=== PATIENT | male | born 1950 | race Two or more races ===

== ENCOUNTER 2023-10-23 18:36 | Inpatient (IN) | payer MEDICARE, OTHER, SELFPAY ==
[2023-10-23 15:04] VITALS: BP 102/49
[2023-10-23 15:27] LABS: % Basophils 0.5 % (0-2); % Eosinophils 0.9 % (0-6); % Immature Granulocytes 1.7 % (0-0.5); % Lymphocytes 12.9 % (20.5-51.1); % Monocytes 8.8 % (1.7-9.3); % Neutrophils 75.2 % (42.2-75.2); Absolute Basophils 0.1 10^3/uL (0-0.2); Absolute Eosinophils 0.1 10^3/uL (0-0.7); Absolute Immature Granulocytes 0.2 10^3/uL (0-0.05); Absolute Lymphocytes 1.5 10^3/uL (1.2-3.4); Absolute Neutrophils 8.7 10^3/uL (1.4-6.5); Hematocrit 21.1 % (39.0-52.0); Mean Corp Hgb Conc. 32.7 g/dL (33.0-37.0); Mean Corpuscular Hgb 31.2 pg (27.0-31.0); Mean Corpuscular Volume 95.5 fL (80.0-94.0); Mean Platelet Volume 11.2 fL (7.4-10.4); Nucleated Red Blood Cells % 1.4 % (-); Platelet Count 198 10^3/uL (130-400); Red Blood Cell Count 2.21 10^6/uL (4.70-6.10); Red Cell Dist. Width 16.5 % (11.5-14.5); White Blood Cell Count 11.6 10^3/uL (4.8-10.8)
[2023-10-23 15:33] LABS: Hemoglobin 6.9 g/dL (13.0-18.0)
[2023-10-23 15:43] LABS: ALT (SGPT) 26 U/L (0-50); AST (SGOT) 27 U/L (17-59); Albumin 3.7 g/dl (3.5-5.0); Alkaline Phosphatase 86 U/L (38-126); Blood Urea Nitrogen 27 mg/dl (9-20); Calcium 9.2 mg/dl (8.4-10.2); Carbon Dioxide 21 mmol/L (22-30); Chloride 102 mmol/L (98-107); Glucose 127 mg/dl (70-99); Potassium 3.8 mmol/L (3.5-5.1); Sodium 130 mmol/L (135-145); Total Bilirubin 0.4 mg/dl (0.2-1.3); Total Protein 5.9 g/dl (6.3-8.2); eGFR > 60.00
[2023-10-23 15:50] LABS: NT-proBNP 414 pg/ml; Troponin I 0.015 ng/ml
--- NOTE | 2023-10-23 17:48 | HPS.HSE ---
Family Physician
-
Family Physician:
Chief Complaint
-
Fatigue for a few days duration
History of Present Illness
73 years old male presented with fatigue and weakness in the last few days. He reported dark-colored stools over the last few days. He denied chest pain or shortness of breath. He was taking ibuprofen for arthritic/back pain. No fever. No
history of gastric ulcer. No abdominal pain or nausea. His children noticed that he was looking pale also.
Medical History
Past Medical History
Past Medical History: Reports Other (Hypertension, arthritis)
Past Surgical History: Reports Other (No recent major surgery)
Social History
Tobacco: Former Smoker
Alcohol: Former
Drug: None
Personal: Single
Living: Alone
Employment: Retired
Family History
Family History: Adopted and Other
Allergies / Home Medications
Allergies reflects when Allergies were last updated in [employer].
Home Medications with original date entered in [employer]
Allergy/Medication List:
Allergies
Allergy/AdvReac Type Severity Reaction Status Date / Time
Penicillins Allergy Unknown Unknown Verified 10/23/23 15:04
Sulfa (Sulfonamide Allergy Unknown Unknown Verified 10/23/23 15:04
Antibiotics)
Home Medications
amlodipine 10 mg tablet 10 mg PO DAILY 10/23/23
hydrochlorothiazide 25 mg tablet 25 mg PO DAILY 10/23/23
ibuprofen 200 mg capsule 400 mg PO DAILY 10/23/23
loratadine 10 mg tablet (Claritin) 10 mg PO DAILY 10/23/23
multivitamin 1 tab PO DAILY 10/23/23
ramipril 10 mg capsule 10 mg PO DAILY 10/23/23
ramipril 5 mg capsule 5 mg PO DAILY 10/23/23
rosuvastatin 5 mg tablet 5 mg PO DAILY 10/23/23
Review of Systems
-
History Source: Patient
A 12 point ROS was completed and negative except as noted: Yes
Constitutional: Reports Fatigue
EENT: Denies Sore Throat
Respiratory: Denies Cough
Cardiac: Denies Chest Pain
Abdomen/GI: Reports Black Stools; Denies Abdominal Pain, Nausea or Vomiting
: Denies Dysuria or Bleeding
Musculoskeletal: Reports Joint Pain
Skin: Denies Itching or Rash
Neurological: Denies Headache or Numbness
Endocrine: Denies Temp Intolerance
Hematologic/Lymphatic: Denies Bruising
Psych: Denies Panic Disorder
Physical Exam
Vital Signs
Vital Signs
Temp Pulse Resp BP Pulse Ox
97.8 F 92 18 102/49 97
10/23/23 15:04 10/23/23 15:04 10/23/23 15:04 10/23/23 15:04 10/23/23 15:04
Physical Exam
General: Well Developed, Well Nourished, No Apparent Distress and Comfortable
HEENT: Moist mucous membranes and Atraumatic
Respiratory: Clear
Cardiac: S1/S2 and Tachycardia
GI: Soft, Non Tender and Non Distended
Rectal: Hem Positive
Genito-urinary: Clear Urine and No costovertebral tender
Musculoskeletal: No Clubbing, No Cyanosis and No Edema
Skin: Warm and Dry
Neuro: AO x 3 and Nonfocal/grossly intact
Psych: Calm and Intact Judgment/Insight
Laboratory Results
-
10/23/23 15:14
10/23/23 15:14
Laboratory Results
Total Bilirubin 0.4 mg/dl (0.2-1.3) 10/23/23 15:14
AST 27 U/L (17-59) 10/23/23 15:14
ALT 26 U/L (0-50) 10/23/23 15:14
Alkaline Phosphatase 86 U/L (38-126) 10/23/23 15:14
Troponin I 0.015 ng/ml 10/23/23 15:14
Impression/Plan
-
IMPRESSION:
73 years old male presented with anemia
#Acute blood loss anemia likely upper GI bleeding secondary to nonsteroidal anti-inflammatory, medications induced gastritis/esophagitis/ulceration
Admit the patient to the hospital. Admission hemoglobin 6.9.
Patient has fatigue, weakness with tachycardia on admission.
Will give blood transfusion. Consent signed.
Will start the patient on Protonix drip. Hold nonsteroidal anti-inflammatory drugs
No history of previous gastrointestinal problems. He uses Cologuard and last test was negative a month ago. Never had colonoscopy.
He is adopted with unknown family history. His children daughter have inflammatory bowel disease history.
Appreciate gastroenterology input. N.p.o. past midnight for possible EGD
# Primary hypertension. Will continue with amlodipine. Will hold ramipril due to low normal blood pressure on admission.
#Osteoarthritis. Will use Tylenol for pain.
# Leukocytosis, no fever. Likely reactive.
# Hyponatremia, mild, will continue to monitor.
# DVT prophylaxis with Thromboguards
Total time spent to see the patient, examine the patient on the floor, review data and lab results, discuss treatment plan with patient, ER doctor, nursing staff around 75 minutes.
--- NOTE | 2023-10-23 17:56 | ED.GENMED ---
History of Present Illness
General
Chief Complaint: Breathing Problem
Source: patient
Exam Limitations: none
Time Seen by Provider: 10/23/23 17:08
Travel History
Have you had any contact with someone who has COVID-19?: No
Do you have any symptoms of coronavirus? Fever > 100 degrees, chills, cough, shortness of breath, sore throat, loss of taste or smell, muscle aches, or headache?: No
History of Present Illness
History of Present Illness:
73-year-old male presents complaining of fatigue and dyspnea on exertion worsening over the past week. He also noted dark-colored stools over the past 2 to 3 days. He notes that the black color. He denies chest pain or shortness of breath. He is
not anticoagulated. He admits to taking about 400 mg of ibuprofen daily recently for back pain. No chest pain. No fever. No other complaints at this time
Phy Exam
Physical Exam
Physical Exam:
General: Well-appearing male no acute respiratory distress
HEENT: Normocephalic atraumatic looks pale
Heart: Regular rate and rhythm no murmurs
Lungs: Clear no wheeze or rales
Abdomen is soft nontender
Rectal exam: Black-colored stool which is heme positive
Extremities: Mild edema no cyanosis
Scores
Heart Failure Risk
Heart Failure Risk Score: Not Applicable
Course
Orders/Labs/Results
Orders:
Orders
10/23/23 15:06
Electrocardiogram (*1) Urgent
Reason for Study: Shortness of Breath
EKG- Treatment ONCE
10/23/23 15:14
Complete Blood Count/With Diff Urgent
Comprehensive Metabolic Panel Urgent
NT-proBNP Urgent
Troponin I Urgent
10/23/23 17:25
Blood Bank Products [* Blood Bank Products] Urgent
Blood Bank Products: *Packed RBC Leuko(PRBC's)
Quantity: 1
Transfuse Today: Yes
Reason: Anemia
Type+Screen Urgent
10/23/23 17:26
Pantoprazole [Protonix IV] 80 mg IV NOW STA
10/23/23 17:30
Pantoprazole 80 mg/100 ml Nss [Protonix] 80 mg in 100 ml IV Q10H
10/23/23 17:48
Admit/Transfer Patient As Directed
Co-Sign Provider:
Level of Care: Inpatient admission
Assign to:: Telemetry
Physician / Group: Hospitalist
Diagnosis: GI Bleeding
Reason for Telemetry: Medication for Arrhythmia
Date to Stop Telemetry: 10/25/23
Time to Stop Telemetry: 11:00
Reason for Hospitalization: .
Expected length of stay greater than two midnights?: Yes
ELOS- Estimated Length of Stay in days: 3
I certify the patient meets the requirements for IP care: Yes
10/23/23 17:49
Code Status As Directed
Resuscitation Status: Full Code
10/23/23 17:50
HydrALAZINE [Apresoline] 25 mg PO NOW STA
10/25/23 11:00
DC Protocol for Telemetry ONCE
Abnormal Lab Results
10/23/23
15:14
WBC 11.6 H 10^3/uL
(4.8-10.8)
RBC 2.21 L 10^6/uL
(4.70-6.10)
Hgb 6.9 L* g/dL
(13.0-18.0)
Hct 21.1 L %
(39.0-52.0)
MCV 95.5 H fL
(80.0-94.0)
MCH 31.2 H pg
(27.0-31.0)
MCHC 32.7 L g/dL
(33.0-37.0)
RDW 16.5 H %
(11.5-14.5)
MPV 11.2 H fL
(7.4-10.4)
Abs Immat Gran (auto) 0.2 H 10^3/uL
(0-0.05)
Absolute Neuts (auto) 8.7 H 10^3/uL
(1.4-6.5)
Absolute Monos (auto) 1.0 H 10^3/uL
(0.1-0.6)
Immature Gran % 1.7 H %
(0-0.5)
Lymphocytes % 12.9 L %
(20.5-51.1)
Sodium 130 L mmol/L
(135-145)
Carbon Dioxide 21 L mmol/L
(22-30)
BUN 27 H mg/dl
(9-20)
Glucose 127 H mg/dl
(70-99)
Total Protein 5.9 L g/dl
(6.3-8.2)
10/23/23 15:14
10/23/23 15:14
Vital Signs
Initial and Last Documented VS:
Initial Vital Signs
Temp Pulse Resp BP Pulse Ox
97.8 F 92 18 102/49 97
10/23/23 15:04 10/23/23 15:04 10/23/23 15:04 10/23/23 15:04 10/23/23 15:04
Last Documented Vital Signs
Temp Pulse Resp BP Pulse Ox
97.8 F 92 18 102/49 97
10/23/23 15:04 10/23/23 15:04 10/23/23 15:04 10/23/23 15:04 10/23/23 15:04
MDM/Problems Addressed
Differential Diagnosis Includes:
Fatigue with new weakness and shortness of breath with exertion. Question electrolyte abnormality versus anemia.
Exam more consistent with black stool that is heme positive suspect possible GI bleeding.
Will start Protonix. Hemoglobin 6.9. He is symptomatic from his anemia. Written consent obtained for blood transfusion packed red blood cells ordered x 1 unit. Gastroenterology and medicine made aware. Will admit to hospital
*Critical Care Note
Total Time (30-74mins, 75-104mins- exclusive of procedures): Not Applicable
ED Attending Note
-
Portions of this chart may have been created with voice recognition software.� Occasional wrong word or��sound alike� substitutions may have occurred due to the inherent limitations of voice recognition software.
Discharge Plan
Departure
Patient Disposition: Admit
Date of Disposition: 10/23/23
Time of Disposition: 17:58
Admit to: Telemetry
Presentation/result/management discussed w/ accepting MD/DO: Hospitalist
Discharge Problem:
Symptomatic anemia, Acute GI bleeding
Prescriptions:
No Action
multivitamin Tablet
1 tab PO DAILY
ibuprofen 200 mg Capsule
400 mg PO DAILY
amlodipine 10 mg tablet
10 mg PO DAILY
hydrochlorothiazide 25 mg tablet
25 mg PO DAILY
ramipril 5 mg capsule
5 mg PO DAILY
Patient Comments:
10/23/2023: taken w/ 10mg = 15mg
loratadine [Claritin] 10 mg Tablet
10 mg PO DAILY
ramipril 10 mg capsule
10 mg PO DAILY
Patient Comments:
10/23/2023: Taken w/ 5mg = 15mg
rosuvastatin 5 mg tablet
5 mg PO DAILY
Discharge Date and Time
Print Language: GRENADIAN
[2023-10-23 18:06] VITALS: BP 107/63
[2023-10-23] MEDS: PROTONIX IV 80 MG IV (18:07)
[2023-10-23] MEDS: PROTONIX 100 IV (18:11)
[2023-10-23 20:39] VITALS: BP 110/61; BMI 34.0
[2023-10-23 22:44] VITALS: BP 122/51
[2023-10-23 23:00] VITALS: BP 113/55
[2023-10-24] VITALS (10 sets, daily range): BP systolic 110–141; BP diastolic 55–72
--- NOTE | 2023-10-24 01:07 | PTCARENOTE ---
1 unit of PRBC infused without incident. VS stable throughout infusion. Pt's call blas within reach.
[2023-10-24] MEDS: PROTONIX 100 IV (03:37)
[2023-10-24 06:34] LABS: Hematocrit 21.2 % (39.0-52.0); Mean Corpuscular Hgb 31.3 pg (27.0-31.0); Mean Corpuscular Volume 94.6 fL (80.0-94.0); Mean Platelet Volume 11.2 fL (7.4-10.4); Platelet Count 144 10^3/uL (130-400); Red Blood Cell Count 2.24 10^6/uL (4.70-6.10); Red Cell Dist. Width 16.7 % (11.5-14.5); White Blood Cell Count 8.7 10^3/uL (4.8-10.8)
--- NOTE | 2023-10-24 06:52 | CON.GI ---
Addendum entered and electronically signed by Vandana Archer MD 10/24/23 13:05:
I saw and examined the patient.
The FIFTH GRADE TEACHER or PA's note was reviewed and I agree with the note.
Comment: 73 yo M pmh HTN here with melena and anemia in setting of NSAID use suspect PUD. No AC.
s/p 2UPRBC.
Plan EGD today risks inc not limited to bleeding, infection, perforation, anesthesia risk d/w pt agreeable.
Continue PPI.
NPO for not pending EGD.
Further recommendations pending EGD.
Addendum entered and electronically signed by MALOU Hutchins 10/24/23 09:07:
will add iron studies to ER lab, rectal black heme + in ER.
Original Note:
Consultation
-
Date/Time Consultation Requested: 10/23/232010
Date/Time Consultation Performed: 10/24/23 0800
Requesting Provider: Winnie Watkins MD
Performing Provider: MALOU Street, Josiane Archer MD
Reason for Consultation: anemia
Medical History
Chief Complaint / HPI
Chief Complaint: dark stools
History of Present Illness:
Pt is a 73yo with hx HTN, arthritis with onset of dark black stool and hbg on admission to 6.9 with BUN of 27. Pt admits to chronic Ibuprofen use for back pain with several increased dose for joint pains after shingles vaccine. Pt admits to
slow onset of symptoms but over last week worse with dizziness and black stools. No hx EGD or colonoscopy in past. He has has cologuard last several weeks ago noted negative.
Pt admits to 1 black stool every other day with dizziness but denies dysphagia, GERD, nausea, vomiting, abdominal pain, diarrhea, constipation or red blood in stools.
Past Medical History
Past Medical History: HTN and Other (arthritis, seasonal allergies)
Social History
Tobacco: Former Smoker (quit 2032)
Alcohol: Former (quit )
Drug: None
Living: Alone
Employment: Retired
Family History
Family History: Adopted (children with no hx GI problems)
Allergies / Home Medications
Allergy/AdvReac Type Severity Reaction Status Date / Time
Penicillins Allergy Unknown Unknown Verified 10/23/23 15:04
Sulfa (Sulfonamide Allergy Unknown Unknown Verified 10/23/23 15:04
Antibiotics)
�Medication �Instructions �Recorded
amlodipine 10 mg tablet 10 mg PO DAILY 10/23/23
hydrochlorothiazide 25 mg tablet 25 mg PO DAILY 10/23/23
ibuprofen 200 mg capsule 400 mg PO DAILY 10/23/23
loratadine 10 mg tablet (Claritin) 10 mg PO DAILY 10/23/23
multivitamin 1 tab PO DAILY 10/23/23
ramipril 10 mg capsule 10 mg PO DAILY 10/23/23
ramipril 5 mg capsule 5 mg PO DAILY 10/23/23
rosuvastatin 5 mg tablet 5 mg PO DAILY 10/23/23
Review of Systems
-
History Source: Patient
Constitutional: Reports No Symptoms
EENT: Reports No Symptoms
Respiratory: Reports No Symptoms
Abdomen/GI: Reports Black Stools
: Reports No Symptoms
Musculoskeletal: Reports Joint Pain
Skin: Reports No Symptoms
Neurological: Reports Dizzy and Weakness
Endocrine: Reports No Symptoms
Hematologic/Lymphatic: Reports Bleeding
Vital Signs
Temp Pulse Resp BP Pulse Ox
99.4 F 83 20 125/58 96
10/24/23 03:35 10/24/23 03:35 10/24/23 03:35 10/24/23 03:35 10/24/23 03:35
Physical Exam
Exam
General: Well Developed, Well Nourished and No Apparent Distress
HEENT: Normocephalic and Anicteric
Respiratory: Clear
Cardiac: Regular Rhythm
GI: Soft, Non Tender and Non Distended
Musculoskeletal: No Clubbing and No Cyanosis
Skin: Warm and Dry
Neuro: Awake, Alert and AO x 3
Psych: Calm
Results
WBC 8.7 10^3/uL (4.8-10.8) 10/24/23 06:19
Hgb 7.0 g/dL (13.0-18.0) L 10/24/23 06:19
Hct 21.2 % (39.0-52.0) L 10/24/23 06:19
MCV 94.6 fL (80.0-94.0) H 10/24/23 06:19
Plt Count 144 10^3/uL (130-400) D 10/24/23 06:19
Absolute Neuts (auto) 8.7 10^3/uL (1.4-6.5) H 10/23/23 15:14
Sodium 130 mmol/L (135-145) L 10/23/23 15:14
Potassium 3.8 mmol/L (3.5-5.1) 10/23/23 15:14
Chloride 102 mmol/L (98-107) 10/23/23 15:14
Carbon Dioxide 21 mmol/L (22-30) L 10/23/23 15:14
BUN 27 mg/dl (9-20) H 10/23/23 15:14
Creatinine 1.1 mg/dL (0.7-1.3) 10/23/23 15:14
Calcium 9.2 mg/dl (8.4-10.2) 10/23/23 15:14
Total Bilirubin 0.4 mg/dl (0.2-1.3) 10/23/23 15:14
AST 27 U/L (17-59) 10/23/23 15:14
ALT 26 U/L (0-50) 10/23/23 15:14
Alkaline Phosphatase 86 U/L (38-126) 10/23/23 15:14
Diagnostic Image Results:
Prior GI Procedures:
EGD: none
Colonoscopy: none
cologuard neg 2-3 weeks ago
Assessment / Plan
-
Pt is a 73yo with hx HTN, arthritis with onset of dark black stools with weakness and dizziness over last week,. Noted hbg 6.9 on admission no prior baseline. Pt admits to recent Ibuprofen use for back pain and increased use with recent
shingles vaccine
-melena
-symptomatic anemia
-HTN
-hx arthritis with chronic NSAID use
prior ETOH and tobacco use
PLAN:
etiology of anemia with melena related to UGI- PUD with chronic NSAID use, ectasia, mass vs other
plan for EGD today
NSAID avoidance
s/p transfusion overnight hbg only up to 7 for additional unit today
continue protonix gtt
NPO
if neg consider colonoscopy vs OP colonoscopy after discharge
-
-
Thank you for consultation and allowing me to participate in the patient's care. Please call the plant operations worker GI physician during the after hours with any questions or concerns.
[2023-10-24 06:54] LABS: Blood Urea Nitrogen 23 mg/dl (9-20); Calcium 8.3 mg/dl (8.4-10.2); Carbon Dioxide 25 mmol/L (22-30); Chloride 104 mmol/L (98-107); Estimated Creatinine Clearance 83 ml/min; Glucose 114 mg/dl (70-99); Potassium 4.2 mmol/L (3.5-5.1); Sodium 131 mmol/L (135-145); eGFR > 60.00
[2023-10-24] MEDS: NORVASC 10 MG PO (07:30)
[2023-10-24 07:45] LABS: INR 1.17; PT 14.7 Sec (11.4-14.6)
--- NOTE | 2023-10-24 08:52 | W.PN.HOSP.TC ---
Today's Communication/Plan
-
.
Assessment / Plan
Assessment / Plan
Physical Exam
General: Well Developed, Well Nourished, No Apparent Distress and Comfortable
HEENT: Moist mucous membranes and Atraumatic
Respiratory: Clear
Cardiac: S1/S2 and Tachycardia
GI: Soft, Non Tender and Non Distended
Rectal: Hem Positive
Genito-urinary: Clear Urine and No costovertebral tender
Musculoskeletal: No Clubbing, No Cyanosis and No Edema
Skin: Warm and Dry
Neuro: AO x 3 and Nonfocal/grossly intact
Psych: Calm and Intact Judgment/Insight
73 years old male presented with anemia
#Acute blood loss anemia likely upper GI bleeding secondary to nonsteroidal anti-inflammatory, medications induced gastritis/esophagitis/ulceration
HGB at 7 post one unit , will give another unit of RBCs.
c/w Protonix drip. Hold nonsteroidal anti-inflammatory drugs
No history of previous gastrointestinal problems. He uses Cologuard and last test was negative a month ago. Never had colonoscopy.
He is adopted with unknown family history. His children daughter have inflammatory bowel disease history.
Appreciate gastroenterology input. N.p.o. past midnight for possible EGD
# Primary hypertension. Will continue with amlodipine. Hold ramipril due to low normal blood pressure on admission.
#Osteoarthritis. use Tylenol for pain.
# Leukocytosis, no fever. Resolved. Likely reactive.
# Hyponatremia, mild, will continue to monitor. Na at 131
# DVT prophylaxis with Thromboguards
Total time spent to see the patient, examine the patient on the floor, review data and lab results, discuss treatment plan with patient, nursing staff around 55 minutes.
Anticipated Discharge: Within 24 hours
Subjective/Interval History
-
Date of Service: October 24, 2023
No rectal bleeding, no BM over night
No abd pain
Objective Data
-
Labs:
Laboratory Results
10/24/23 10/24/23
06:19 07:17
WBC 8.7
Hgb 7.0 L
Hct 21.2 L
Plt Count 144 D
PT 14.7 H
INR 1.17
Sodium 131 L
Potassium 4.2
Chloride 104
Carbon Dioxide 25
BUN 23 H
Creatinine 1.0
Glucose 114 H
Calcium 8.3 L
Vital Signs:
Vital Signs
Temp Pulse Resp BP Pulse Ox
98.6 F 85 18 135/72 97
10/24/23 08:44 10/24/23 08:44 10/24/23 08:44 10/24/23 08:44 10/24/23 08:44
I&O
10/23/23 10/24/23 10/25/23
06:59 06:59 06:59
Intake Total 490 / 490 0 / 0
Output Total 850 / 850
Balance -360 / -360 0 / 0
[2023-10-24 11:30] LABS: Iron 158 ug/dl (49-181)
[2023-10-24 11:39] LABS: Percent Saturation 39 % (20-50); Total Iron Binding Capacity 402 ug/dl (261-462)
--- NOTE | 2023-10-24 11:55 | PTCARENOTE ---
Patient received 1 unit of PRBC. No s/s of transfusion reaction noted. VSS. Pox: 99% RA. Call blas within reach. Plan of care ongoing.
--- NOTE | 2023-10-24 13:05 | W.PN.UPDATE ---
Update Note
Progress Note Update
billing purposes only
[2023-10-24 13:50] LABS: Ferritin 46.3 ng/ml (17.9-464.0)
[2023-10-24] MEDS: PROTONIX IV (14:41)
--- NOTE | 2023-10-24 15:57 | CM ---
CM met with pt andn dtr bedside
Pt resides alone in a 3rd floor apartment with no elevator access
Pt has approx [address] apartment
Pt is independent with his ADls
Denies use of DMEs
PCP- Ashley Wilkins
Rx- [facility]
PT order requested to assess for endurance and steps to enter home
CM will continue to follow pt for dc planning
Discharge Disposition- home, follow for VN needs
[2023-10-24] MEDS: GAVILAX 238 GM PO (19:22)
[2023-10-24] MEDS: PROTONIX IV 40 MG IV (20:40)
[2023-10-24] MEDS: NSS (PRESERVATIVE FREE) 10 ML IV (20:40)
[2023-10-24] MEDS: FLUSH (NSS) 2 FLUSH IV (20:40)
[2023-10-25] VITALS (7 sets, daily range): BP systolic 108–136; BP diastolic 51–84
--- NOTE | 2023-10-25 00:50 | PTCARENOTE ---
Pt completed bowel prep around 2200. Pt informed this RN he had one formed BM. No other stools noted. GANG PUNCH OPERATOR made aware, new order provided, see MAR. Will reevaluate stool in anticipation of colonoscopy today.
[2023-10-25] MEDS: GAVILAX 238 GM PO (02:59)
[2023-10-25 06:36] LABS: Mean Corp Hgb Conc. 33.8 g/dL (33.0-37.0); Mean Corpuscular Hgb 31.3 pg (27.0-31.0); Mean Corpuscular Volume 92.5 fL (80.0-94.0); Mean Platelet Volume 10.8 fL (7.4-10.4); Platelet Count 159 10^3/uL (130-400); Red Blood Cell Count 2.81 10^6/uL (4.70-6.10); Red Cell Dist. Width 17.1 % (11.5-14.5); White Blood Cell Count 7.4 10^3/uL (4.8-10.8)
[2023-10-25 06:38] LABS: Hemoglobin 8.8 g/dL (13.0-18.0)
[2023-10-25 07:00] LABS: Blood Urea Nitrogen 18 mg/dl (9-20); Calcium 8.8 mg/dl (8.4-10.2); Carbon Dioxide 24 mmol/L (22-30); Chloride 104 mmol/L (98-107); Estimated Creatinine Clearance 83 ml/min; Glucose 131 mg/dl (70-99); Potassium 4.1 mmol/L (3.5-5.1); Sodium 132 mmol/L (135-145); eGFR > 60.00
--- NOTE | 2023-10-25 07:30 | PTCARENOTE ---
Pt HR sustaining 130's-140's. No complaints of shortness of breathe. Pt stated, 'It feels like my heart is thumping'. HR decreased to 80's-90's and increased to 130'-140's again. Hospitalist made aware, hospitalist assessed pt at bedside, new orders
provided, see MAR. Bonita RN made aware of information. This RN and daysiaft RN assessed pt at bedside. Will continue to monitor.
[2023-10-25] MEDS: NSS 500 IV (07:44)
--- NOTE | 2023-10-25 08:04 | W.PN.HOSP.TC ---
Today's Communication/Plan
-
.
Assessment / Plan
Assessment / Plan
Physical Exam
General: Well Developed, Well Nourished, No Apparent Distress and Comfortable
HEENT: Moist mucous membranes and Atraumatic
Respiratory: Clear
Cardiac: S1/S2 and Tachycardia
GI: Soft, Non Tender and Non Distended
Rectal: Hem Positive
Genito-urinary: Clear Urine and No costovertebral tender
Musculoskeletal: No Clubbing, No Cyanosis and No Edema
Skin: Warm and Dry
Neuro: AO x 3 and Nonfocal/grossly intact
Psych: Calm and Intact Judgment/Insight
73 years old male presented with anemia
Tachycardia this morning,
# Consistent with atrial fibrillation. Patient reports history of palpitations on and off at home. No known cardiac disease. Order EKG. Seems consistent with atrial fibrillation. Will give IV fluid for volume replacement, give one-time IV
Lopressor and start the patient on IV Cardizem drip.
Order echocardiogram
This is not a contraindication to do colonoscopy which will be helpful to detect GI bleeding source if we need to use anticoagulation
Appreciate cardiology input
#Acute blood loss anemia likely upper GI bleeding secondary to nonsteroidal anti-inflammatory, medications induced gastritis/esophagitis/ulceration
HGB at 8.8, status post 2 units of blood.
Upper endoscopy did not reveal source of bleeding
For colonoscopy today
Status post Protonix drip.
Appreciate gastroenterology input. N.p.o. past midnight for possible EGD
# Primary hypertension. Stop amlodipine while using Cardizem. Holding ramipril due to low normal blood pressure on admission.
#Osteoarthritis. use Tylenol for pain.
# Leukocytosis, no fever. Resolved. Likely reactive.
# Hyponatremia, mild, will continue to monitor. Na at 132
# DVT prophylaxis with Thromboguards
Total time spent to see the patient, examine the patient on the floor, review data and lab results, discuss treatment plan with patient, nursing staff around 55 minutes.
Anticipated Discharge: 24 - 48 hours
Subjective/Interval History
-
Date of Service: October 25, 2023
called to see the patient for rapid heart rate
PT reports palpitations
Objective Data
-
Labs:
Laboratory Results
10/25/23
06:26
WBC 7.4
Hgb 8.8 L D
Hct 26.0 L
Plt Count 159
Sodium 132 L
Potassium 4.1
Chloride 104
Carbon Dioxide 24
BUN 18
Creatinine 1.0
Glucose 131 H
Calcium 8.8
Vital Signs:
Vital Signs
Temp Pulse Resp BP Pulse Ox
98.6 F 78 18 126/70 98
10/25/23 03:47 10/25/23 03:47 10/25/23 03:47 10/25/23 03:47 10/25/23 03:47
I&O
10/24/23 10/25/23 10/26/23
06:59 06:59 06:59
Intake Total 490 / 490 7420 / 7420
Output Total 850 / 850
Balance -360 / -360 7420 / 7420
[2023-10-25] MEDS: NSS (PRESERVATIVE FREE) 10 ML IV ×2 (08:11→19:49)
[2023-10-25] MEDS: PROTONIX IV 40 MG IV ×2 (08:12→19:49)
[2023-10-25] MEDS: LOPRESSOR 5 MG IV (08:18)
[2023-10-25] MEDS: NORVASC PO (08:18)
[2023-10-25] MEDS: CARDIZEM 125 IV (08:42)
--- NOTE | 2023-10-25 10:12 | CON.CAR ---
Addendum entered and electronically signed by Reyes Thacker MD 10/25/23 12:15:
I saw and examined the patient.
The Business Continuity Planner's note was reviewed and I agree with the note.
Comment: Briefly, 73-year-old man presenting with fatigue found to have symptomatic anemia with concern for GI bleed
While undergoing prep for colonoscopy he developed atrial fibrillation with rapid ventricular response
Initiated on Cardizem drip, would uptitrate for goal heart rate less than 110 bpm
Given suspected GI bleed would opt for rate control strategy if possible for now, can hopefully transition to oral AV evelyn morena
Would initiate anticoagulation when safe from a GI standpoint
Original Note:
Consultation
Consultation Request
Date/Time Consultation Performed: 10/25/23
Requesting Provider: Dr. Watkins
Performing Provider: Rhina Powell PA-C for Dr. Thacker
Reason for Consultation: afib with RVR
Medical History
-
Chief Complaint: weakness
History of Present Illness:
Patient is a 73-year-old male with past medical history of hypertension, hyperlipidemia who presented to the hospital for evaluation of weakness. He reports he has been taking ibuprofen for achy joints over the last week or 2. He states he also
recently received a shingles vaccine and was achy from this, and increased his ibuprofen dose to 600 mg. He states over the last several days he has noted dark stools. He was admitted for GI bleeding and underwent endoscopy 10/24/2023. He underwent
prep for colonoscopy yesterday afternoon and overnight. He states he had to complete the prep twice. This morning around 7 AM he was noted to go into atrial fibrillation with rapid ventricular response. This is a new diagnosis for patient. He
does report over the last several months he had intermittent brief palpitations which appear to be random but did not seek further medical attention for this. He denies recent chest pain or shortness of breath. He was started on cardizem gtt.
Cardiology consulted for evaluation.
PMH:
HTN
HLD
History of alcohol abuse, quit 1986
Former smoker
Past Medical History
Past Medical History: Other (in HPI)
Social History
Tobacco: Former Smoker
Alcohol: Former
Employment: Retired
Family History
Family History: Adopted
Allergies / Home Medications
Allergy/AdvReac Type Severity Reaction Status Date / Time
Penicillins Allergy Unknown Unknown Verified 10/23/23 15:04
Sulfa (Sulfonamide Allergy Unknown Unknown Verified 10/23/23 15:04
Antibiotics)
�Medication �Instructions �Recorded �Confirmed �Type
amlodipine 10 mg tablet 10 mg PO DAILY 10/23/23 10/23/23 History
hydrochlorothiazide 25 mg tablet 25 mg PO DAILY 10/23/23 10/23/23 History
ibuprofen 200 mg capsule 400 mg PO DAILY 10/23/23 10/23/23 History
loratadine 10 mg tablet (Claritin) 10 mg PO DAILY 10/23/23 10/23/23 History
multivitamin 1 tab PO DAILY 10/23/23 10/23/23 History
ramipril 10 mg capsule 10 mg PO DAILY 10/23/23 10/23/23 History
ramipril 5 mg capsule 5 mg PO DAILY 10/23/23 10/23/23 History
rosuvastatin 5 mg tablet 5 mg PO DAILY 10/23/23 10/23/23 History
Review of Systems
-
History Source: Patient
All other systems: Negative unless noted
Physical Exam
Vital Signs
Temp Pulse Resp BP Pulse Ox
98.8 F 78 16 126/70 95
10/25/23 07:00 10/25/23 08:18 10/25/23 07:00 10/25/23 08:18 10/25/23 07:00
Lab Results
10/25/23 06:26
10/25/23 06:26
Troponin I 0.015 ng/ml 10/23/23 15:14
[id number] Pept 414 pg/ml 10/23/23 15:14
Physical Exam
General: No Apparent Distress and Comfortable
HEENT: Normocephalic, Anicteric and Moist Mucous Membranes
Respiratory: Clear and Non Labored Respirations
Cardiac: S1/S2, Irregular Rhythm and Murmur
GI: Soft, Non Tender, Non Distended and Normal Bowel Sounds
Musculoskeletal: No Clubbing, No Cyanosis and No Edema
Skin: Warm and Dry
Neuro: AO x 3
Impression / Plan
-
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 Thacker
Assessment:
Presentation with weakness
Acute anemia
Suspected LGIB
Dehydration
Atrial fibrillation with RVR, new diagnosis
Hyponatremia
Recent NSAID use
HTN
HLD
History of alcohol abuse, quit 1986
Former smoker
ECHO 10/25/23: pending
Plan:
-Patient presented with weakness and dark stools and was found to have acute anemia with hemoglobin of 6.9. Received 2 units PRBCs. underwent EGD 10/24/2023 without clear etiology of bleeding. Was for colonoscopy today, however went into atrial
fibrillation with rapid ventricular response this morning around 7 AM.
-Remains with elevated heart rates in A-fib. Increase IV Cardizem gtt dose to 10
-Check echo
-Check TSH
-Consider IV fluid hydration in setting of suspected dehydration from colonoscopy prep
-[id number] score of 2 for age, hypertension. Discussed anticoagulation with patient, however holding off for now on anticoagulation at present with GI workup underway for anemia/GI bleeding
-will continue rate control strategy for now. hopefully will spontaneously convert back to SR
-Discussed avoiding NSAID use in the future
-If heart rates improved, okay to proceed with colonoscopy later today
-d/w hospitalist, GI via TT
Data Reviewed
-
EKG: Tracing Personally Visualized and interpreted
Labs: Labs Reviewed by me
Old Records: Reviewed
--- NOTE | 2023-10-25 15:17 | CM ---
met with patient at bedside.ugi negative .for colonoscopy today.monitoring hgb.cm to follow patient for any dc needs.
plan:dc home with no needs vs vn.
[2023-10-26] VITALS (11 sets, daily range): BP systolic 107–144; BP diastolic 56–80
[2023-10-26] MEDS: CARDIZEM 125 IV (00:19)
[2023-10-26 06:41] LABS: Hematocrit 21.3 % (39.0-52.0); Hemoglobin 7.1 g/dL (13.0-18.0); Mean Corp Hgb Conc. 33.3 g/dL (33.0-37.0); Mean Corpuscular Hgb 31.6 pg (27.0-31.0); Mean Corpuscular Volume 94.7 fL (80.0-94.0); Mean Platelet Volume 11.2 fL (7.4-10.4); Platelet Count 112 10^3/uL (130-400); Red Blood Cell Count 2.25 10^6/uL (4.70-6.10); Red Cell Dist. Width 17.3 % (11.5-14.5); White Blood Cell Count 5.7 10^3/uL (4.8-10.8)
[2023-10-26 07:15] LABS: Blood Urea Nitrogen 15 mg/dl (9-20); Calcium 8.2 mg/dl (8.4-10.2); Carbon Dioxide 22 mmol/L (22-30); Chloride 109 mmol/L (98-107); Estimated Creatinine Clearance 83 ml/min; Glucose 108 mg/dl (70-99); Potassium 3.8 mmol/L (3.5-5.1); Sodium 133 mmol/L (135-145); eGFR > 60.00
[2023-10-26] MEDS: PROTONIX IV 40 MG IV ×2 (08:16→20:21)
[2023-10-26] MEDS: CARDIZEM CD 240 MG PO (08:16)
[2023-10-26] MEDS: NSS (PRESERVATIVE FREE) 10 ML IV ×2 (08:16→20:21)
[2023-10-26] MEDS: FLUSH (NSS) 2 FLUSH IV (08:16)
--- NOTE | 2023-10-26 09:32 | W.PN.GI.CBS2 ---
Addendum entered and electronically signed by Vandana Archer MD 10/26/23 18:13:
+ Umaña's on EGD - PPI indefinitely 5 year recall EGD
? celiac on path - will get celiac serologies would not explain melena
ENT eval appreciated
Addendum entered and electronically signed by Vandana Archer MD 10/26/23 13:39:
I saw and examined the patient.
The CRIMINAL ANALYST or PA's note was reviewed and I agree with the note.
Comment: 73 yo M pmh HTN here with melena and anemia in setting of NSAID use s/p EGD/colon no obvious source with such drop in Hb (small AVM in cecum s/p APC; duodenal erosion). Drop in Hb by 1 g today getting more PRBC.
Patient does elicit he has been having significant feeling in back of throat/postnasal drip and both spitting up blood and having blood from his nose- I think he would benefit from ENT eval and I discussed this recommendation with hospitalist.
We will put on for tentative push enteroscopy tomorrow.
Patient in new onset A fib and AC on hold with bleeding currently.
Addendum entered and electronically signed by MALOU Hutchins 10/26/23 10:39:
reviewed with cardiology currently in sinus Rhythm will need eventual anticoagulation when anemia work up completed
Addendum entered and electronically signed by MALOU Hutchins 10/26/23 09:54:
NPO for am if further drop and decide to proceed with enteroscopy
Original Note:
Today's Communication / Plan
-
s/p EGD and colonoscopy as noted
hbg 6.9 - 7-8.8-7.1
s/p 2 units transfused
will repeat hbg at 1400 today
if further drop or signs of bleeding consider push enteroscopy
pt for OP video capsule
pt also report some feeling of blood passing post nasal drip -- advance to provide sample and consider ENT eval
if anemia persist and no source consider heme eval as iron studies normal
review EGD bx with pt will need repeat EGD with metaplasia and colon 6 months with poor prep
pt also with villous blunting with duodenitis, celiac though no intraepithelial lymphocytes, less likely autoimmune enteropathy, infectious enteropathy or iatrogenic cause in differential will review with Dr. Archer
cont diet
Assessment / Plan
-
Pt is a 73yo with hx HTN, arthritis with onset of dark black stools with weakness and dizziness over last week,. Noted hbg 6.9 on admission no prior baseline. Pt admits to recent Ibuprofen use for back pain and increased use with recent
shingles vaccine
10/24/23- EGD - Normal esophagus. irreg Z line, - Congestive gastropathy. Biopsied. - Duodenal erosion without bleeding. - Flattened mucosa was found in the duodenum, rule out
celiac disease. Biopsied. Carefully examined no explanation for GIB today. bx mild chronic inactive gastritis, + intestinal metaplasia on esophageal bx, villous blunting,(duodenitis, celiac though no
intraepithelial lymphocytes, less likely autoimmune enteropathy, infectious enteropathy or iatrogenic causes)
10/25/23 colonoscopy - Preparation of the colon was inadequate., normal ileum, diverticulosis, single non bleeding angioectasia in cecum with APC treatment, IH
-melena
-symptomatic anemia - iron studies normal
-post nasal drip with bleeding last 7-10 days
-intestinal metaplasia
-villious blunting SB on EGD bx
-cecal AVM
-mild thrombocytopenia with drop during admission
-HTN
-hx arthritis with chronic NSAID use
prior ETOH and tobacco use
-hyponatremia
PLAN:
s/p EGD and colonoscopy as noted
hbg 6.9 - 7-8.8-7.1
s/p 2 units transfused
will repeat hbg at 1400 today
if further drop or signs of bleeding consider push enteroscopy
pt for OP video capsule
pt also report some feeling of blood passing post nasal drip -- advance to provide sample and consider ENT eval
if anemia persist and no source consider heme eval as iron studies normal
review EGD bx with pt will need repeat EGD with metaplasia and colon 6 months with poor prep
pt also with villous blunting with duodenitis, celiac though no intraepithelial lymphocytes, less likely autoimmune enteropathy, infectious enteropathy or iatrogenic cause in differential will review with Dr. Archer
cont diet
Subjective
Subjective
Date of Service: October 26, 2023
no stools overnight tolerating diet -- reports he has been having blood dripping post nasal. He states occasional blood with blowing nose over last 7-10 days
Objective
Data Reviewed
Laboratory Data:
Laboratory Results
10/26/23 06:24
Laboratory Results
PT 14.7 Sec (11.4-14.6) H 10/24/23 07:17
INR 1.17 10/24/23 07:17
Total Bilirubin 0.4 mg/dl (0.2-1.3) 10/23/23 15:14
AST 27 U/L (17-59) 10/23/23 15:14
ALT 26 U/L (0-50) 10/23/23 15:14
Alkaline Phosphatase 86 U/L (38-126) 10/23/23 15:14
Vital Signs and I&O:
Vital Signs
Temp Pulse Resp BP Pulse Ox
98.1 F 67 18 131/69 98
10/26/23 07:00 10/26/23 08:16 10/26/23 07:00 10/26/23 08:16 10/26/23 07:00
I&O
10/25/23 10/26/23 10/27/23
06:59 06:59 06:59
Intake Total 7420 / 7420 1140 / 1140
Balance 7420 / 7420 1140 / 1140
Physical Exam
Physical Exam
HEENT: Anicteric, Moist mucous membranes and Other (no adenopathy)
Cardiology: Normal Sinus Rhythm
Pulmonary: Clear
GI: Soft, Non Distended and Non Tender
Extremities: No Edema
Neuro: Non Focal
--- NOTE | 2023-10-26 10:39 | W.PN.CARDCBS ---
Addendum entered and electronically signed by Reyes Thacker MD 10/26/23 13:14:
I saw and examined the patient.
The Calliope Player's note was reviewed and I agree with the note.
Comment: Briefly, 73-year-old man presenting with symptomatic anemia undergoing workup of possible GI bleed
During colonoscopy prep he developed atrial fibrillation with rapid ventricular response
He spontaneously converted to sinus rhythm yesterday and is currently maintaining sinus rhythm
Continue diltiazem and monitor on telemetry
Eventual anticoagulation pending the results of anemia workup
Original Note:
Today's Communication / Plan
-
back in SR. cardizem cd 240mg daily
anemia work up per GI/primary service
may need additional transfusion
not current OAC candidate with ongoing anemia
check TSH
Impression / Plan
-
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
Assessment:
Presentation with weakness
Acute anemia
Suspected GIB
Dehydration
Atrial fibrillation with RVR, new diagnosis
Hyponatremia
Recent NSAID use
HTN
HLD
History of alcohol abuse, quit 1986
Former smoker
ECHO 10/25/23: EF 55-60%. mild MR, aortic sclerosis, mild AR, trace TR, PAP 26mmHg, dilated aortic root
Plan:
-Patient presented with weakness and dark stools and was found to have acute anemia with hemoglobin of 6.9. Received 2 units PRBCs. underwent EGD 10/24/2023 without clear etiology of bleeding. Was for colonoscopy 10/24 however went into afib with RVR
around 7AM. was started on IV cardizem gtt and spontaneously converted to SR 10/24 afternoon. he has remained in SR since that time
-continue po cardizem cd 240mg daily
-echo with results as above, reviewed with patient on 10/25
-[id number] score is 2, however not an anticoagulation candidate at present as with ongoing anemia. His hemoglobin dropped overnight from 8.8 to 7.1. Continue workup for primary service/GI. may need additional transfusion
-Check TSH
-Discussed avoiding NSAID use in the future
-d/w GI
Progress Note - Game Farm Helper
Subjective
Date of Service: October 26, 2023
Denies chest pain, shortness of breath, palpitations overnight. Does report he feels fatigued and weak.
Objective
Labs:
10/26/23 06:24
Labs
Hgb 7.1 g/dL (13.0-18.0) L 10/26/23 06:24
Hct 21.3 % (39.0-52.0) L 10/26/23 06:24
Plt Count 112 10^3/uL (130-400) L D 10/26/23 06:24
PT 14.7 Sec (11.4-14.6) H 10/24/23 07:17
INR 1.17 10/24/23 07:17
Sodium 133 mmol/L (135-145) L 10/26/23 06:24
Potassium 3.8 mmol/L (3.5-5.1) 10/26/23 06:24
BUN 15 mg/dl (9-20) 10/26/23 06:24
Creatinine 1.0 mg/dL (0.7-1.3) 10/26/23 06:24
Glucose 108 mg/dl (70-99) H 10/26/23 06:24
Troponins
10/23/23
15:14
Troponin I 0.015
Vital Signs and I&O:
Vital Signs
Temp Pulse Resp BP Pulse Ox
98.1 F 67 18 131/69 98
10/26/23 07:00 10/26/23 08:16 10/26/23 07:00 10/26/23 08:16 10/26/23 07:00
Vital Signs
Temp Pulse Resp BP Pulse Ox
98.1 F 67 18 131/69 98
10/26/23 07:00 10/26/23 08:16 10/26/23 07:00 10/26/23 08:16 10/26/23 07:00
Intake & Output
10/24/23 10/25/23 10/26/23 10/27/23
07:59 07:59 07:59 07:59
Intake Total 490 / 490 7420 / 7420 1140 / 1140
Output Total 850 / 850
Balance -360 / -360 7420 / 7420 1140 / 1140
Physical Exam
Physical Exam
GEN: No distress, awake, alert, oriented x3. sitting in chair
HEENT: supple, anicteric, mmm
LUNGS: CTA B/L, no wheezes/rales
CV: Reg, S1/S2, 1/6 syst LSB
ABD: soft, BS+, NT/ND
EXT: No cyanosis, clubbing, edema
NEURO: Gross non-focal
SKIN: Warm, pink, dry. No rash
--- NOTE | 2023-10-26 12:02 | W.PN.HOSP.TC ---
Addendum entered and electronically signed by Amaury Watkins MD 10/26/23 14:06:
Addendum
Pt reports post nasal drip, sometimes blood-tinged mucus
Discussed with GI doctor. Requesting ENT evaluation
d/w ENT
Input appreciated.
End
Original Note:
Today's Communication/Plan
-
.
Assessment / Plan
Assessment / Plan
Physical Exam
General: Well Developed, Well Nourished, No Apparent Distress and Comfortable
HEENT: Moist mucous membranes and Atraumatic
Respiratory: Clear
Cardiac: S1/S2 and Tachycardia
GI: Soft, Non Tender and Non Distended
Rectal: Hem Positive
Genito-urinary: Clear Urine and No costovertebral tender
Musculoskeletal: No Clubbing, No Cyanosis and No Edema
Skin: Warm and Dry
Neuro: AO x 3 and Nonfocal/grossly intact
Psych: Calm and Intact Judgment/Insight
73 years old male presented with anemia
# Paroxysmal atrial fibrillation.
Now in SR
Stop Cardizem gtt and star on oral Cardizem.
[id number] around 2.2% but not a candidate for systemic anticoagulation due to anemia and GI bleeding
Echocardiogram showed LVEF 55 to 60%. Mild MR, mild AI, trace TR.
Appreciate cardiology input
#Acute blood loss anemia likely upper GI bleeding possibly exacerbated by use of nonsteroidal anti-inflammatory, medications induced gastritis/esophagitis/ulceration
HGB at 8.8, status post 2 units of blood. Hemoglobin 7.1, will give another 2 units today.
Upper endoscopy did not reveal source of bleeding showed congestive gastropathy. Flattened mucosa in the duodenum.
Colonoscopy showed diverticulosis with nonbleeding angiectasia in the cecum.
Status post Protonix drip.
Appreciate gastroenterology input.
# Primary hypertension. Stopped amlodipine while using Cardizem. Held ramipril due to low normal blood pressure.
No chest pain. No headache.
#Osteoarthritis. use Tylenol for pain.
# Leukocytosis, no fever. Resolved. Likely reactive.
# Hyponatremia, mild, will continue to monitor. Na at 133
# DVT prophylaxis with Thromboguards
Total time spent to see the patient, examine the patient on the floor, review data and lab results, discuss treatment plan with patient, nursing staff around 57 minutes.
Anticipated Discharge: 24 - 48 hours
Subjective/Interval History
-
Date of Service: October 26, 2023
He denies abd pain or rectal bleeding
HGB dropped to 7.1
Objective Data
-
Labs:
Laboratory Results
10/26/23 10/26/23
06:24 14:00
WBC 5.7
Hgb 7.1 L Pending
Hct 21.3 L
Plt Count 112 L D
Sodium 133 L
Potassium 3.8
Chloride 109 H
Carbon Dioxide 22
BUN 15
Creatinine 1.0
Glucose 108 H
Calcium 8.2 L
Vital Signs:
Vital Signs
Temp Pulse Resp BP Pulse Ox
98.4 F 67 18 120/60 97
10/26/23 11:00 10/26/23 11:00 10/26/23 11:00 10/26/23 11:00 10/26/23 11:00
I&O
10/25/23 10/26/23 10/27/23
06:59 06:59 06:59
Intake Total 7420 / 7420 1140 / 1140
Balance 7420 / 7420 1140 / 1140
[2023-10-26 12:26] LABS: TSH Reflex To Free T4 4.82 uIU/ml (0.47-4.68)
[2023-10-26 12:55] LABS: Free T4 1.01 ng/dl (0.78-2.19)
--- NOTE | 2023-10-26 13:39 | W.PN.UPDATE ---
Update Note
Progress Note Update
billing purposes
--- NOTE | 2023-10-26 14:58 | CON.MD ---
Consultation - Medical
-
Pt seen and full consult dictated.
ENT asked to evaluate for possible epistaxis as a source of bloody stools and anemia.
Endoscopy and laryngoscopy performed at bed side. Entire nasal cavity is fully examined bilaterally, as well as larynx.
There is no evidence of mass, polyp, or any source of bleeding. No dry blood noted either.
A/P: There does not appear to be an upper airway source of bleeding. In order for epistaxis to cause the drop in Hgb we would expect a large amount of bleeding that would make the source more obvious. However, please contact us for re-evaluation if
there is any more significant bleeding.
--- NOTE | 2023-10-26 17:32 | VATNOTE ---
Right hand noted to be inflamed and swollen, from previous IV site. Pt utilizing ice for comfort. Will continue to monitor
[2023-10-26 21:55] LABS: Hemoglobin 8.6 g/dL (13.0-18.0)
[2023-10-27] VITALS (7 sets, daily range): BP systolic 102–160; BP diastolic 47–84
[2023-10-27 06:50] LABS: Hematocrit 25.3 % (39.0-52.0); Hemoglobin 8.4 g/dL (13.0-18.0); Mean Corp Hgb Conc. 33.2 g/dL (33.0-37.0); Mean Corpuscular Hgb 30.7 pg (27.0-31.0); Mean Corpuscular Volume 92.3 fL (80.0-94.0); Mean Platelet Volume 11.5 fL (7.4-10.4); Platelet Count 121 10^3/uL (130-400); Red Blood Cell Count 2.74 10^6/uL (4.70-6.10); Red Cell Dist. Width 17.5 % (11.5-14.5); White Blood Cell Count 6.3 10^3/uL (4.8-10.8)
[2023-10-27 07:09] LABS: Magnesium 2.4 mg/dl (1.6-2.3)
--- NOTE | 2023-10-27 07:22 | VATNOTE ---
Right hand with decreased inflammation but remains swollen, cool compresses continued.
[2023-10-27] MEDS: TOPROL XL 25 MG PO (08:16)
[2023-10-27] MEDS: CARDIZEM CD 240 MG PO (08:16)
[2023-10-27] MEDS: NSS (PRESERVATIVE FREE) 10 ML IV (08:17)
[2023-10-27] MEDS: PROTONIX IV 40 MG IV (08:17)
--- NOTE | 2023-10-27 09:13 | W.PN.HOSP.TC ---
Today's Communication/Plan
-
.
Assessment / Plan
Assessment / Plan
Physical Exam
General: Well Developed, Well Nourished, No Apparent Distress and Comfortable
HEENT: Moist mucous membranes and Atraumatic
Respiratory: Clear
Cardiac: S1/S2 and Tachycardia
GI: Soft, Non Tender and Non Distended
Rectal: Hem Positive
Genito-urinary: Clear Urine and No costovertebral tender
Musculoskeletal: No Clubbing, No Cyanosis and No Edema
Skin: Warm and Dry
Neuro: AO x 3 and Nonfocal/grossly intact
Psych: Calm and Intact Judgment/Insight
73 years old male presented with anemia
# Paroxysmal atrial fibrillation.
Now in SR but goes in and out of rapid A fib
will add Toprol XL
Stopped Cardizem gtt and stared on oral Cardizem.
[id number] around 2.2% but not a candidate for systemic anticoagulation due to anemia and GI bleeding
Echocardiogram showed LVEF 55 to 60%. Mild MR, mild AI, trace TR.
Appreciate cardiology input
#Acute blood loss anemia likely upper GI bleeding possibly exacerbated by use of nonsteroidal anti-inflammatory, medications induced gastritis/esophagitis/ulceration
HGB at 8.8, status post 4 units of blood. Hemoglobin 8.4 this morning.
Upper endoscopy did not reveal source of bleeding showed congestive gastropathy. Flattened mucosa in the duodenum.
Colonoscopy showed diverticulosis with nonbleeding angiectasia in the cecum.
Status post Protonix drip.
ENT evaluated the pt and no upper airway source of bleeding.
Plan for possible enteroscopy
Appreciate gastroenterology input.
# Primary hypertension. Stopped amlodipine while using Cardizem. Held ramipril due to low normal blood pressure.
No chest pain. No headache.
#Osteoarthritis. use Tylenol for pain.
# Leukocytosis, no fever. Resolved. Likely reactive.
# Hyponatremia, mild, will continue to monitor. Na at 133
# DVT prophylaxis with Thromboguards
Total time spent to see the patient, examine the patient on the floor, review data and lab results, discuss treatment plan with patient, nursing staff around 59 minutes.
Anticipated Discharge: 24 - 48 hours
Subjective/Interval History
-
Date of Service: October 27, 2023
No chest pain
No sob
Had rapid A fib over night
Objective Data
-
Labs:
Laboratory Results
10/26/23 10/27/23
21:48 06:12
WBC 6.3
Hgb 8.6 L D 8.4 L
Hct 25.3 L
Plt Count 121 L
Vital Signs:
Vital Signs
Temp Pulse Resp BP Pulse Ox
98.8 F 72 20 160/80 92
10/27/23 07:06 10/27/23 08:16 10/27/23 07:06 10/27/23 08:16 10/27/23 07:06
I&O
10/26/23 10/27/23 10/28/23
06:59 06:59 06:59
Intake Total 1140 / 1140 1360 / 1360
Balance 1140 / 1140 1360 / 1360
--- NOTE | 2023-10-27 11:40 | W.PN.CARDCBS ---
Addendum entered and electronically signed by Berenice Chavez DO 10/27/23 16:08:
I saw and examined the patient.
The Rn Pediatric's note was reviewed and I agree with the note.
Comment: Seen and examined following enteroscopy with GI today with family at bedside. He is feeling well and denies chest pain or pressure, shortness of breath, or lightheadedness. He has a generalized sense of fatigue. No bleeding.
GEN: aaox3; ambulating in room with family at bedside. NAD
HEENT: mmm
LUNGS: CTA B/L, no wheezes/rales
CV: Reg, S1/S2, 07/29 syst LSB
ABD: soft, BS+, NT/ND
EXT: No edema
NEURO: Gross non-focal
Plan:
Presentation with weakness/fatigue with GI bleed and acute anemia status post 3 units packed red blood cells
-GI consult and studies reviewed.
- had upper GI endoscopy today with Dr. Siddiqi finding Umaña's esophagus. 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 Plan for GI is to resume anticoagulation in 2 weeks with close observation of
hemoglobin.
-Continue PPI
-Avoid NSAIDs
- monitor hemoglobin; on admission 6.9 g/dL. Hemoglobin today 8.4 g/dL
-Monitor platelets, currently 121, 198 on admission
Atrial fibrillation, new diagnosis currently in sinus rhythm
-Continue Cardizem CD 240 daily and add Toprol XL 25 mg daily for recurrent rapid PAF last evening which was symptomatic
-No anticoagulation at present; if hemoglobin stable would resume in 2 weeks
-Abnormal TFTs with normal free T4�follow-up as an outpatient with his primary care physician.
Outpatient cardiac follow-up to be arranged
We will sign off, recall if needed
-Further cardiac evaluation to be arranged as outpatient
-Consider eventual sleep apnea evaluation
Original Note:
Today's Communication / Plan
-
GI work up ongoing
in SR, brief ep of afib overnight
continue cardizem cd 240mg daily, toprol 25mg daily added today
not OAC candidate at present.
Impression / Plan
-
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 Thacker
Assessment:
Presentation with weakness
Acute anemia
Suspected GIB
Dehydration
Atrial fibrillation with RVR, new diagnosis
Hyponatremia
Recent NSAID use
HTN
HLD
History of alcohol abuse, quit 1986
Former smoker
ECHO 10/25/23: EF 55-60%. mild MR, aortic sclerosis, mild AR, trace TR, PAP 26mmHg, dilated aortic root
Plan:
-he is for push enteroscopy today per GI
-hgb stable at 8.4 on 10/26 after total of 4 U PRBCs since admission
-mostly in SR upon review of tele overnight. one brief episode of afib noted, patient was symptomatic with this. hospitalist added toprol 25mg daily to cardizem cd 240mg daily. follow HRs in SR, currently in 50s.
-echo with results as above, reviewed with patient on 10/25 and 10/26
-[id number] score is 2, however not an anticoagulation candidate at present with ongoing anemia. Continue workup for primary service/GI. eventual OAC when felt to be safe from GI standpoint
-TSH mildly elevated at 4.82, however free T4 normal
-Discussed avoiding NSAID use in the future
PREADMIT DATA:
-Patient presented with weakness and dark stools and was found to have acute anemia with hemoglobin of 6.9. Received 2 units PRBCs. underwent EGD 10/24/2023 without clear etiology of bleeding. Was for colonoscopy 10/24 however went into afib with RVR
around 7AM. was started on IV cardizem gtt and spontaneously converted to SR 10/24 afternoon
Progress Note - Territory Sales Manager Medical
Subjective
Date of Service: October 27, 2023
reports afib episode overnight he thinks woke him from sleep. no CP, SOB
Objective
Labs:
10/27/23 06:12
10/26/23 06:24
Labs
Hgb 8.4 g/dL (13.0-18.0) L 10/27/23 06:12
Hct 25.3 % (39.0-52.0) L 10/27/23 06:12
Plt Count 121 10^3/uL (130-400) L 10/27/23 06:12
PT 14.7 Sec (11.4-14.6) H 10/24/23 07:17
INR 1.17 10/24/23 07:17
Sodium 133 mmol/L (135-145) L 10/26/23 06:24
Potassium 3.8 mmol/L (3.5-5.1) 10/26/23 06:24
BUN 15 mg/dl (9-20) 10/26/23 06:24
Creatinine 1.0 mg/dL (0.7-1.3) 10/26/23 06:24
Glucose 108 mg/dl (70-99) H 10/26/23 06:24
Vital Signs and I&O:
Vital Signs
Temp Pulse Resp BP Pulse Ox
98.8 F 72 20 160/80 92
10/27/23 07:06 10/27/23 08:16 10/27/23 07:06 10/27/23 09:14 10/27/23 07:06
Vital Signs
Temp Pulse Resp BP Pulse Ox
98.8 F 72 20 160/80 92
10/27/23 07:06 10/27/23 08:16 10/27/23 07:06 10/27/23 09:14 10/27/23 07:06
Intake & Output
10/25/23 10/26/23 10/27/23 10/28/23
07:59 07:59 07:59 07:59
Intake Total 7420 / 7420 1140 / 1140 1360 / 1360
Balance 7420 / 7420 1140 / 1140 1360 / 1360
Physical Exam
Physical Exam
GEN: No distress, awake, alert, oriented x3.
HEENT: supple, anicteric, mmm
LUNGS: CTA B/L, no wheezes/rales
CV: Reg, S1/S2, 1/6 syst LSB
ABD: soft, BS+, NT/ND
EXT: No cyanosis, clubbing, edema
NEURO: Gross non-focal
SKIN: Warm, pink, dry. No rash
[2023-10-27 15:11] LABS: Glucose - Point of Care 149 mg/dl (70-99)
--- NOTE | 2023-10-27 15:22 | PTCARENOTE ---
around 1500 pt reported feeling light headed/fatigued with visual changes. pt stated his visual changes are like foggy tunnel vision/sara. pt reported he had the same symptoms when his hgb was low before. hgb this am 8.4. pt ate post EGD procedure
this AM. blood sugar 149. VSS bp 139/73. hr in the 70s running NSR with occasional PVCs on tele monitor. Dr. Watkins notified via tt at 15:04. no further orders at this time, dr. Watkins stated she would come by to see pt.
[2023-10-27] MEDS: LOPRESSOR 2.5 MG IV (20:42)
[2023-10-28 03:15] VITALS: BP 125/64
[2023-10-28 07:00] VITALS: BP 108/61
[2023-10-28] MEDS: PROTONIX 40 MG PO (08:20)
[2023-10-28] MEDS: CARDIZEM CD 240 MG PO (08:20)
[2023-10-28] MEDS: TOPROL XL 25 MG PO (08:20)
[2023-10-28 09:00] LABS: Hematocrit 26.1 % (39.0-52.0); Hemoglobin 8.5 g/dL (13.0-18.0); Mean Corp Hgb Conc. 32.6 g/dL (33.0-37.0); Mean Corpuscular Hgb 30.5 pg (27.0-31.0); Mean Corpuscular Volume 93.5 fL (80.0-94.0); Mean Platelet Volume 12.2 fL (7.4-10.4); Platelet Count 118 10^3/uL (130-400); Red Blood Cell Count 2.79 10^6/uL (4.70-6.10); Red Cell Dist. Width 16.6 % (11.5-14.5); White Blood Cell Count 7.5 10^3/uL (4.8-10.8)
--- NOTE | 2023-10-28 09:20 | CM ---
Reviewed PT/OT. Patient is close to baseline per their assessment. Will continue to watch for needs.
Plan: Case management will continue to follow and assist with discharge planning. Home when stable back to his apartment.
[2023-10-28 09:29] LABS: Blood Urea Nitrogen 20 mg/dl (9-20); Calcium 8.6 mg/dl (8.4-10.2); Carbon Dioxide 25 mmol/L (22-30); Chloride 104 mmol/L (98-107); Estimated Creatinine Clearance 83 ml/min; Glucose 103 mg/dl (70-99); Potassium 4.1 mmol/L (3.5-5.1); Sodium 135 mmol/L (135-145); eGFR > 60.00
--- NOTE | 2023-10-28 09:52 | W.DCSUMMARY ---
Discharge Summary
Discharge Data
Date of Admission: 10/23/23
Date of Discharge: 10/28/23
-
Pending Results: No
Hospital Course
73 years old male who presented with weakness and was found to have anemia with hemoglobin 6.9. Patient reported black stools history. He did not have baseline hemoglobin. Patient reported infrequent palpitations and shortness of breath at home.
Patient was admitted to the hospital. He was noted to have paroxysmal atrial fibrillation on hospital monitor. He was started on Cardizem drip. He was evaluated by browning processor. Echocardiogram showed normal left ventricular ejection fraction 55
to 60%, mild mitral regurgitation, mild aortic insufficiency with a trace tricuspid regurgitation. Patient was evaluated by gastroenterology. He had upper endoscopy and colonoscopy that showed Umaña's esophagus with normal stomach, duodenum and
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 Patient received blood transfusion total 4 units. Hemoglobin stabilized around 8 with no rectal bleeding or melena. He was evaluated by ear, nose and throat doctor
with no source of upper respiratory tract bleeding. Patient remained hemodynamically stable. His heart rate was controlled with Cardizem and metoprolol and he converted to sinus rhythm. He verbalized understanding to potential side effects of
his new medications. No anticoagulation at the present time due to anemia. Normal thyroid-stimulating hormone. Patient was maintained on Protonix pump inhibitor. He was discharged home in a stable condition.
Physical Exam
General: Well Developed, Well Nourished, No Apparent Distress and Comfortable
HEENT: Moist mucous membranes and Atraumatic
Respiratory: Clear
Cardiac: S1/S2 and Tachycardia
GI: Soft, Non Tender and Non Distended
Rectal: Hem Positive
Genito-urinary: Clear Urine and No costovertebral tender
Musculoskeletal: No Clubbing, No Cyanosis and No Edema
Skin: Warm and Dry
Neuro: AO x 3 and Nonfocal/grossly intact
Psych: Calm and Intact Judgment/Insight.
Total discharge time spent to see the patient, examine the patient on the floor, review data and lab results, discuss discharge plan with patient, nursing staff around 65 minutes.
Discharge Plan
-
Patient Disposition: Home (Routine Discharge)
Discharge Diagnosis/Procedures: Blood loss anemia secondary to gastrointestinal bleeding status post and transfusion of 4 units of blood. Continue on oral iron which may cause black stools.
Paroxysmal atrial fibrillation starting on Cardizem (calcium channel morena )and metoprolol(beta-morena)
Umaña's esophagus, continue on Protonix and follow-up with gastroenterology
Primary hypertension: We stopped amlodipine and hydrochlorothiazide because of starting new medications and to avoid hypotension
You will need to follow with your primary care doctor within a week and repeat the blood work
Diet: As tolerated
Referrals:
Reyes Thacker MD [Active] - 11/16/23 11:20 am (You have a cardiology follow up appointment at the [place] office. Please call with questions. )
Ashley Wilkins PA-C [Family Provider] - in one to two weeks
Vandana Archer MD [Active] - 12/13/23 11:30 am
( Will need repeat EGD in 5 years and colonoscopy in 6 months. Call Alyssa in GI office to arrange capsule endoscopy
Your follow up appt is with MALOU Fan in Dr. Archer's office. Please call to reschedule if you can not keep this appointment. If your insurance requires a referral please contact your primary care physician prior to your appointment. )
Prescriptions:
New
diltiazem HCl 240 mg Capsule,Extended Release 24hr
240 mg PO DAILY Qty: 30 0RF
acetaminophen [Tylenol Extra Strength] 500 mg Tablet
1,000 mg PO Q6HPRN PRN (Reason: mod to severe pain) Qty: 10 0RF
pantoprazole 40 mg Tablet,Delayed Release (Dr/Ec)
40 mg PO DAILY Qty: 30 0RF
metoprolol succinate 25 mg Tablet Extended Release 24 Hr
25 mg PO DAILY Qty: 30 0RF
ferrous sulfate 325 mg (65 mg iron) tablet
325 mg PO DAILY Qty: 30 0RF
Continued
multivitamin Tablet
1 tab PO DAILY
loratadine [Claritin] 10 mg Tablet
10 mg PO DAILY
rosuvastatin 5 mg tablet
5 mg PO DAILY
Discontinued
ibuprofen 200 mg Capsule
400 mg PO DAILY
amlodipine 10 mg tablet
10 mg PO DAILY
hydrochlorothiazide 25 mg tablet
25 mg PO DAILY
ramipril 5 mg capsule
5 mg PO DAILY
Patient Comments:
10/23/2023: taken w/ 10mg = 15mg
ramipril 10 mg capsule
10 mg PO DAILY
Patient Comments:
10/23/2023: Taken w/ 5mg = 15mg
Discharge Orders:
Discharge Patient (As Directed); Ordered 10/28/23
Ordered By: Amaury Watkins
Discharge Date and Time
Print Language: TURKISH
[2023-10-28 11:00] VITALS: BP 154/95
[2023-10-28 11:39] VITALS: BP 154/95
[2023-10-29 06:48] LABS: Endomysial IgA Antibody Titer <1:10 (<1:10)
[2023-10-30 02:00] LABS: IgA 126 mg/dl (70-400)
[2023-11-01 15:17] LABS: tTG IgA Antibody 31.7 EU/ml (0-19); tTG IgG Antibody 12.9 EU/ml (0-19)
== END 2023-10-28 11:49 | disposition home or self-care (01) | DRG 378 ==
LOC: 3 WEST ACU 18:36
PROVIDERS: Emergency Medicine; Internal Medicine Gastroenterology; Nurse Practitioner Adult Health; Registered Nurse; ADMITTING PHYSICIAN Internal Medicine; EMERGENCY PHYSICIAN Emergency Medicine; FAMILY PHYSICIAN Physician Assistant Medical; OTHER PHYSICIAN Internal Medicine Cardiovascular Disease; OTHER PHYSICIAN Internal Medicine Gastroenterology; OTHER PHYSICIAN Otolaryngology
PROC: 30233N1 Transfusion of Nonautologous Red Blood Cells into Peripheral Vein, Percutaneous Approach (ICD-10-PCS; 2023-10-23)
PROC: 0DB98ZX Excision of Duodenum, Via Natural or Artificial Opening Endoscopic, Diagnostic (ICD-10-PCS; 2023-10-24)
PROC: 0DB48ZX Excision of Esophagogastric Junction, Via Natural or Artificial Opening Endoscopic, Diagnostic (ICD-10-PCS; 2023-10-24)
PROC: 0DB68ZX Excision of Stomach, Via Natural or Artificial Opening Endoscopic, Diagnostic (ICD-10-PCS; 2023-10-24)
PROC: 0W3P8ZZ Control Bleeding in Gastrointestinal Tract, Via Natural or Artificial Opening Endoscopic (ICD-10-PCS; 2023-10-25)
PROC: 0DJ08ZZ Inspection of Upper Intestinal Tract, Via Natural or Artificial Opening Endoscopic (ICD-10-PCS; 2023-10-27)
DX: K55.21 Angiodysplasia of colon with hemorrhage (principal); D62 Acute posthemorrhagic anemia; E87.1 Hypo-osmolality and hyponatremia; K92.2 Gastrointestinal hemorrhage, unspecified; Z87.891 Personal history of nicotine dependence; T39.395A Adverse effect of other nonsteroidal anti-inflammatory drugs [NSAID], initial encounter; I10 Essential (primary) hypertension; M19.90 Unspecified osteoarthritis, unspecified site; I48.0 Paroxysmal atrial fibrillation; K64.0 First degree hemorrhoids; K22.70 Barrett's esophagus without dysplasia; E78.00 Pure hypercholesterolemia, unspecified
CPT/HCPCS: 88305; 80048; 80053; 82728; 82784; 82962; 83516; 83540; 83550; 83735; 83880; 84439; 84443; 84484; 85018; 85025; 85027; 85610; 86231; 86850; 86900; 86901; 86920; 88342; 93005; 93306; 97116; 97162; 97166; 99285; P9016

== ENCOUNTER 2023-10-31 13:06 | Inpatient (IN) | payer MEDICARE, OTHER, SELFPAY ==
[2023-10-31] VITALS (11 sets, daily range): BP systolic 98–156; BP diastolic 45–85; BMI 35.4; BMI 35.3
[2023-10-31 09:58] LABS: % Basophils 0.5 % (0-2); % Eosinophils 1.8 % (0-6); % Immature Granulocytes 0.4 % (0-0.5); % Lymphocytes 15.6 % (20.5-51.1); % Monocytes 11.6 % (1.7-9.3); % Neutrophils 70.1 % (42.2-75.2); Absolute Eosinophils 0.1 10^3/uL (0-0.7); Absolute Lymphocytes 0.9 10^3/uL (1.2-3.4); Absolute Monocytes 0.7 10^3/uL (0.1-0.6); Absolute Neutrophils 3.9 10^3/uL (1.4-6.5); Hematocrit 27.5 % (39.0-52.0); Hemoglobin 8.9 g/dL (13.0-18.0); Mean Corp Hgb Conc. 32.4 g/dL (33.0-37.0); Mean Corpuscular Hgb 30.5 pg (27.0-31.0); Mean Corpuscular Volume 94.2 fL (80.0-94.0); Mean Platelet Volume 12.5 fL (7.4-10.4); Nucleated Red Blood Cells % 0 % (-); Platelet Count 165 10^3/uL (130-400); Red Blood Cell Count 2.92 10^6/uL (4.70-6.10); Red Cell Dist. Width 15.4 % (11.5-14.5); White Blood Cell Count 5.6 10^3/uL (4.8-10.8)
--- NOTE | 2023-10-31 10:10 | ED.GENMED ---
History of Present Illness
General
Chief Complaint: Fatigue
Source: patient
Exam Limitations: none
Time Seen by Provider: 10/31/23 09:23
Nursing documentation reviewed up to this point in time: agreed with
Travel History
Have you had any contact with someone who has COVID-19?: No
Do you have any symptoms of coronavirus? Fever > 100 degrees, chills, cough, shortness of breath, sore throat, loss of taste or smell, muscle aches, or headache?: No
History of Present Illness
History of Present Illness:
73-year-old male with Zac history of A-fib not currently anticoagulated, hypertension hyperlipidemia presenting to the emergency department today with concerns of fatigue and shortness of breath with any exertion worsening over the past week.
Was recently here 1 week ago with concerns of anemia required 4 units of blood was seen by GI had an endoscopy and colonoscopy without specific findings other than AVM. Bleeding seem to stop while he was here in the hospital. Otherwise he was seen
by cardiology and ENT without specific findings. He claims his symptoms were improved until yesterday when symptoms started again he noticed that his stool was very dark over the past 24 hours he also noticed a red tinge to his urine.
Review of Systems
Review of Systems
Allergies reviewed?: Yes
All Other Systems: ROS reviewed and negative except as documented in HPI and ROS
Phy Exam
Physical Exam
Physical Exam:
GENERAL: Alert , in no apparent distress
EYE: pupils equal and reactive
NECK: Supple, no significant adenopathy.
ENT: o/p clr, mmm.
CARDIAC: Regular rate and rhythm .
LUNGS: Clear breath sounds bilaterally, no acute respiratory distress, no wheezes/rales/rhonchi
ABDOMEN: Rectal examination revealing very dark brown stool guaiac positive. Soft, without focal tenderness, no r/g, no cvat
NEUROLOGICAL: Alert and oriented, no focal neuro deficits
SKIN: Warm and dry, skin intact.
MUSCULOSKELETAL: No edema, well perfused.
PSYCH: Normal and appropriate interaction.
Course
Orders/Labs/Results
Orders:
Orders
10/31/23 09:24
EKG [Electrocardiogram (*1)] Urgent
Reason for Study: Shortness of Breath
EKG- Treatment ONCE
10/31/23 09:49
BNP [NT-proBNP] Urgent
CBC/With Diff [Complete Blood Count/With Diff] Urgent
CMP [Comprehensive Metabolic Panel] Urgent
Troponin I Urgent
10/31/23 10:01
Urinalysis Reflex To Culture Urgent
Date Specimen was Collected: 10/31/23
Time Specimen was Collected: 09:56
10/31/23 11:10
Type+Screen Urgent
BBK Wristband Number:
Abnormal Lab Results
10/31/23
09:49
RBC 2.92 L 10^6/uL
(4.70-6.10)
Hgb 8.9 L g/dL
(13.0-18.0)
Hct 27.5 L %
(39.0-52.0)
MCV 94.2 H fL
(80.0-94.0)
MCHC 32.4 L g/dL
(33.0-37.0)
RDW 15.4 H %
(11.5-14.5)
MPV 12.5 H fL
(7.4-10.4)
Absolute Lymphs (auto) 0.9 L 10^3/uL
(1.2-3.4)
Absolute Monos (auto) 0.7 H 10^3/uL
(0.1-0.6)
Lymphocytes % 15.6 L %
(20.5-51.1)
Monocytes % 11.6 H %
(1.7-9.3)
Chloride 110 H mmol/L
(98-107)
Glucose 111 H mg/dl
(70-99)
Total Protein 5.4 L g/dl
(6.3-8.2)
Albumin 3.2 L g/dl
(3.5-5.0)
10/31/23 09:49
10/31/23 09:49
Vital Signs
Initial and Last Documented VS:
Initial Vital Signs
Temp Pulse Resp BP Pulse Ox
98.3 F 63 18 148/73 97
10/31/23 08:51 10/31/23 08:51 10/31/23 08:51 10/31/23 08:51 10/31/23 08:51
Last Documented Vital Signs
Temp Pulse Resp BP Pulse Ox
98.3 F 63 18 148/73 97
10/31/23 08:51 10/31/23 08:51 10/31/23 08:51 10/31/23 08:51 10/31/23 08:51
MDM/Problems Addressed
MDM/Problems Addressed:
73-year-old male presenting to the emergency department today with concerns of worsening generalized weakness fatigue over the past 24 hours on arrival vital signs are normal patient in no acute apparent distress claims his symptoms are only with
exertion otherwise feels well at rest. No abdominal pain initial labs showing hemoglobin 8.9 which seems to be at his baseline of recent. Concerning the patient's significant symptoms plan to admit for further monitoring and assessment.
*Critical Care Note
Total Time (30-74mins, 75-104mins- exclusive of procedures): Not Applicable
ED Attending Note
-
Portions of this chart may have been created with voice recognition software.� Occasional wrong word or��sound alike� substitutions may have occurred due to the inherent limitations of voice recognition software.
Discharge Plan
Departure
Patient Disposition: Admit
Date of Disposition: 10/31/23
Time of Disposition: 11:20
Admit to: Med/Surg
Admit to doctor: Aditya
Presentation/result/management discussed w/ accepting MD/DO: Hospitalist
Patient with high blood pressure during this ER visit?: No
Condition: Good
Covid-19: Not Applicable
Discharge Problem:
Acute GI bleeding
Prescriptions:
No Action
multivitamin Tablet
1 tab PO DAILY
loratadine [Claritin] 10 mg Tablet
10 mg PO DAILY
rosuvastatin 5 mg tablet
5 mg PO DAILY
diltiazem HCl 240 mg Capsule,Extended Release 24hr
240 mg PO DAILY Qty: 30 0RF
acetaminophen [Tylenol Extra Strength] 500 mg Tablet
1,000 mg PO Q6HPRN PRN (Reason: mod to severe pain) Qty: 10 0RF
pantoprazole 40 mg Tablet,Delayed Release (Dr/Ec)
40 mg PO DAILY Qty: 30 0RF
metoprolol succinate 25 mg Tablet Extended Release 24 Hr
25 mg PO DAILY Qty: 30 0RF
ferrous sulfate 325 mg (65 mg iron) tablet
325 mg PO DAILY Qty: 30 0RF
Referrals:
Ashley Wilkins PA-C [Family Provider] -
Interventions
Interventions:
*Risk Screen - Suicide Last Done: 10/31/23 09:52
*Neglect/Abuse Screening Last Done: 10/31/23 09:52
ED- Fall Risk Assessment Last Done: 10/31/23 09:52
*ED COVID-19 Vaccine History Last Done: 10/31/23 08:51
Discharge Date and Time
Print Language: MALAYSIAN
[2023-10-31 10:15] LABS: Urine Albumin Negative (Neg - Trace); Urine Bilirubin Negative (Negative); Urine Character Clear (Clear); Urine Color Yellow; Urine Glucose Negative (Negative); Urine Ketone Negative (Negative); Urine Leukocyte Negative (Negative); Urine Nitrite Negative (Negative); Urine Occult Blood Negative (Negative); Urine Urobilinogen Negative (Neg - 1+)
[2023-10-31 10:24] LABS: NT-proBNP 888 pg/ml; Troponin I < 0.012 ng/ml
[2023-10-31 10:26] LABS: ALT (SGPT) 22 U/L (0-50); AST (SGOT) 17 U/L (17-59); Albumin 3.2 g/dl (3.5-5.0); Alkaline Phosphatase 88 U/L (38-126); Blood Urea Nitrogen 17 mg/dl (9-20); Calcium 8.7 mg/dl (8.4-10.2); Carbon Dioxide 22 mmol/L (22-30); Chloride 110 mmol/L (98-107); Estimated Creatinine Clearance 94 ml/min; Glucose 111 mg/dl (70-99); Potassium 4.2 mmol/L (3.5-5.1); Sodium 136 mmol/L (135-145); Total Bilirubin 0.4 mg/dl (0.2-1.3); Total Protein 5.4 g/dl (6.3-8.2); eGFR > 60.00
--- NOTE | 2023-10-31 12:45 | HPS.HSE ---
Family Physician
-
Family Physician: Ashley Wilkins
Chief Complaint
-
Shortness of Breath
History of Present Illness
Patient is a 73 y/o male with a past medical history of paroxysmal atrial fibrillation, hypertension, hyperlipidemia, and blood loss anemia who presents for fatigue, lightheadedness, and dyspnea on exertion since last night. He had significant
difficulty climbing half a flight of stairs this morning due to shortness of breath and feeling like he 'just ran 10 miles.' This is not normally an issue for him at baseline. He admits to a cough that appeared after his endoscopy during
hospitalization and has worsened over the past few days. He reports new lower extremity edema and abdominal distention that has been present since his hospitalization. He admits to black stools since discharge on 10/27 with a bowel movement this
morning with a slightly currency counter color. He does not weight himself, but records indicate an 8lb weight gain. He denies chest pain, palpitations, and hematochezia. He denies prior history of heart failure.
Medical History
Past Medical History
Past Medical History: Reports Other
Additional Past Medical History:
Paroxysmal Atrial Fibrillation
Essential Hypertension
Hypertension
Recent GI Bleed thought to be secondary to small bowel angioectasia
Past Surgical History: Reports Other
Additional Past Surgical History:
Tonsillectomy
Endoscopy and Colonoscopy - October 2023
Social History
Tobacco: Former Smoker
Alcohol: Former
Drug: None
Family History
Family History: Adopted
Allergies / Home Medications
Allergies reflects when Allergies were last updated in [employer].
Home Medications with original date entered in [employer]
Allergy/Medication List:
Allergies
Allergy/AdvReac Type Severity Reaction Status Date / Time
Penicillins Allergy Unknown Rash Verified 10/31/23 08:57
Sulfa (Sulfonamide Allergy Unknown Rash Verified 10/31/23 08:57
Antibiotics)
Home Medications
loratadine 10 mg tablet (Claritin) 10 mg PO DAILY Allergies 10/23/23
multivitamin 1 tab PO DAILY Supplement 10/23/23
rosuvastatin 5 mg tablet 5 mg PO DAILY High Cholesterol 10/23/23
acetaminophen 500 mg tablet (Tylenol Extra Strength) 1,000 mg (2 x 500 mg) PO Q6HPRN PRN mod to severe pain #10 tabs 10/28/23
diltiazem HCl 240 mg capsule,extended release 24 hr 240 mg PO DAILY #30 caps 10/28/23
ferrous sulfate 325 mg (65 mg iron) tablet 325 mg PO DAILY #30 tabs 10/28/23
metoprolol succinate 25 mg tablet,extended release 24 hr 25 mg PO DAILY #30 tabs 10/28/23
pantoprazole 40 mg tablet,delayed release 40 mg PO DAILY #30 tabs 10/28/23
Review of Systems
-
A 12 point ROS was completed and negative except as noted: Yes
Constitutional: Reports Weight Gain; Denies Fever or Chills
Respiratory: Reports Cough and Trouble Breathing
Cardiac: Denies Chest Pain or Palpitations
Abdomen/GI: Reports Black Stools; Denies Abdominal Pain, Nausea or Vomiting
Physical Exam
Vital Signs
Vital Signs
Temp Pulse Resp BP Pulse Ox
98.3 F 56 19 131/69 92
10/31/23 08:51 10/31/23 12:15 10/31/23 12:15 10/31/23 12:00 10/31/23 12:15
Physical Exam
General: Comfortable and Conversant
HEENT: Anicteric and Moist mucous membranes
Respiratory: Rales (Bilateral bases, slightly more prominent on right ) and Non Labored Respirations
Cardiac: S1/S2 and Regular Rhythm; No Murmur
GI: Soft, Non Tender, Normal Bowel Sounds and Distended
Rectal: Black (Heme-Positive per ED provider)
Musculoskeletal: No Clubbing, No Cyanosis and Other (+1 pitting edema bilateral lower ext)
Skin: Warm and Dry
Neuro: Awake, Alert, Oriented and Nonfocal/grossly intact
Psych: Calm
Laboratory Results
-
10/31/23 09:49
10/31/23 09:49
Laboratory Results
Total Bilirubin 0.4 mg/dl (0.2-1.3) 10/31/23 09:49
AST 17 U/L (17-59) 10/31/23 09:49
ALT 22 U/L (0-50) 10/31/23 09:49
Alkaline Phosphatase 88 U/L (38-126) 10/31/23 09:49
Troponin I < 0.012 ng/ml 10/31/23 09:49
Data Reviewed
-
Lab Data: Labs Reviewed by me
Old Records: Reviewed
Impression/Plan
-
Iatrogenic Volume Overload following multiple blood transfusions
-Check CXR
-Start Lasix 40mg IV Daily with first dose Now
-Monitor Is&Os and Daily Weights
Subacute Blood Loss Anemia
-Trend Hgb
-Continue iron supplements
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
-Suspect persistent heme-positive stools are residual old blood
-Continue Protonix
Paroxysmal Atrial Fibrillation
-Patient is not on anticoagulation due to recent GI bleed
-Continue Diltiazem and Metoprolol for rate/rhythm control
Essential Hypertension
-Continue Diltiazem and Metoprolol
Hyperlipidemia
-Continue Crestor
DVT proph: SCDs
Code Status: Full Code
--- NOTE | 2023-10-31 12:58 | W.PN.UPDATE ---
Addendum entered and electronically signed by Nazario Ugarte MD 10/31/23 14:32:
Patient states he was allergic to sulfa during childhood however he cannot recall any drastic adverse events. As far as patient know not anaphylactic reaction. Since then he has not taken anything. States now he is able to tolerate penicillins.
Discussed patient diuretic regimen of Lasix versus Bumex. Daughter at bedside knew about diuretics regimen. Patient agreeable to try Bumex. Daughter also amenable to it. Monitor closely.
Original Note:
Update Note
Progress Note Update
I saw and examined the patient.
The PA 's note was reviewed and I agree with the note.
This note is in addition to H&P
Comment:
73-year-old male recently diagnosed with atrial fibrillation, hypertension, osteoarthritis, recent hospitalization last week with GI bleeding who is presenting with dyspnea on exertion. Also setting of mild cough. No chest pain. States of lower
extremity edema and abdominal distention and bilateral upper extremity swelling. Patient did receive 4 units of PRBC and also colonoscopy prep.
General no acute distress
HEENT neck is supple trach is midline
Cardiac S1-S2 regular rate rhythm
Lungs bilateral Rales, lower extremity trace pitting edema
Abdomen positive bowel sounds soft distended, negative for fluid wave
Extremities with trace edema
Impression
Dyspnea on exertion likely secondary to hypotonic fluid overload
Paroxysmal atrial fibrillation
Recent GI bleeding
Anemia secondary to recent GI bleeding
Primary hypertension
Plan
Check two-view chest x-ray
Echocardiogram reviewed EF normal with indeterminate diastolic dysfunction.
proBNP mildly elevated.
Will start patient 40 mg IV Lasix and monitor urine response.
Hold parameters for heart rate control agents
Monitor creatinine
Strict I's and O's
Daily weights
Trend hemoglobin. Having black bowel movement likely due to residual blood from recent GI bleeding. No abdominal pain or cramps. No nausea or vomiting.
DVT prophylaxis SCDs
Discussed with patient daughter at bedside in detail
I spent a total of 80 minutes with the patient or on the floor. More than 50% of this time involved counseling and coordination of care.
--- NOTE | 2023-10-31 14:36 | EDRN ---
pharmacy texted for BUMEX order
[2023-10-31] MEDS: BUMEX 0.5 MG IV (14:56)
[2023-10-31 16:19] LABS: Procalcitonin < 0.05 ng/ml (0.0-0.25)
[2023-10-31] MEDS: LOPRESSOR 5 MG IV (16:33)
--- NOTE | 2023-10-31 16:37 | PTCARENOTE ---
Arrived to unit and ambulated to be. NSR upon arrival on tele. Converted to uncontrolled afib. HR up to 160. EKG done. Dr. Ugarte made aware. PRN IV metoprolol added and administered see SEP.
--- NOTE | 2023-10-31 18:10 | PTCARENOTE ---
Patient with continued HR of 115-135 in AFIB post IV lopressor admin @ 16:33. Dr. Ugarte made aware. Continue to monitor and administer PRNS as ordered.
--- NOTE | 2023-10-31 19:35 | PTCARENOTE ---
Patient was in an atrial fibrillation rate 110-130, converted at this time to a Normal sinus rhythm, with PAC's and PVC's. Will continue to monitor rhythm.
[2023-10-31 20:04] LABS: Hematocrit 26.6 % (39.0-52.0); Hemoglobin 8.8 g/dL (13.0-18.0)
[2023-11-01 03:10] VITALS: BP 116/59
[2023-11-01 06:00] VITALS: BMI 34.5
[2023-11-01 07:24] LABS: Hematocrit 27.7 % (39.0-52.0); Hemoglobin 8.7 g/dL (13.0-18.0); Mean Corp Hgb Conc. 31.4 g/dL (33.0-37.0); Mean Corpuscular Hgb 29.7 pg (27.0-31.0); Mean Corpuscular Volume 94.5 fL (80.0-94.0); Mean Platelet Volume 11.6 fL (7.4-10.4); Platelet Count 168 10^3/uL (130-400); Red Blood Cell Count 2.93 10^6/uL (4.70-6.10); Red Cell Dist. Width 14.9 % (11.5-14.5); White Blood Cell Count 5.5 10^3/uL (4.8-10.8)
[2023-11-01 07:53] VITALS: BP 130/71
[2023-11-01 07:55] LABS: Blood Urea Nitrogen 14 mg/dl (9-20); Calcium 8.7 mg/dl (8.4-10.2); Carbon Dioxide 25 mmol/L (22-30); Chloride 105 mmol/L (98-107); Estimated Creatinine Clearance 93 ml/min; Glucose 104 mg/dl (70-99); Magnesium 2.4 mg/dl (1.6-2.3); Potassium 4.5 mmol/L (3.5-5.1); Sodium 135 mmol/L (135-145); eGFR > 60.00
[2023-11-01] MEDS: BUMEX 0.5 MG IV ×2 (08:56→16:18)
[2023-11-01] MEDS: PROTONIX 40 MG PO (08:58)
[2023-11-01] MEDS: THERAGRAN 1 TABLET PO (08:58)
[2023-11-01] MEDS: FEOSOL 325 MG PO (08:58)
[2023-11-01] MEDS: CLARITIN 10 MG PO (08:58)
[2023-11-01] MEDS: CARDIZEM CD 240 MG PO (08:58)
[2023-11-01] MEDS: CRESTOR 5 MG PO (08:58)
[2023-11-01] MEDS: TOPROL XL 25 MG PO (08:58)
--- NOTE | 2023-11-01 11:35 | W.PN.HOSP.TC ---
Addendum entered and electronically signed by Nazario Ugarte MD 11/01/23 15:40:
update dtr over the phone in details
Original Note:
Today's Communication/Plan
-
Continue with Bumex twice daily
Monitor heart rate
Trend hemoglobin
Assessment / Plan
Assessment / Plan
Iatrogenic Volume Overload following multiple blood transfusions/colonoscopy prep
-Check WWM-cthw-[id number] basilar pneumonia. Procalcitonin negative. Afebrile. No leukocytosis.
-Tolerated Bumex with sulfa allergies. Significant urine output
-Monitor Is&Os and Daily Weights
-ECHO on 10/24 with EF of 55 to 60%. Diastolic function was indeterminate due to A-fib. Normal right ventricular size function. Mild mitral aortic vegetation. Trace tricuspid regurgitation.
Subacute Blood Loss Anemia
-Trend Hgb
-Continue iron supplements
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
-No bowel movement for the last 24 hours.
-Continue Protonix
Paroxysmal Atrial Fibrillation
-Patient is not on anticoagulation due to recent GI bleed
-Continue Diltiazem and Metoprolol for rate/rhythm control
Essential Hypertension
-Continue Diltiazem and Metoprolol
Hyperlipidemia
-Continue Crestor
DVT proph: SCDs recent GI bleeding
Code Status: Full Code
Anticipated Discharge: > 48 hours
Subjective/Interval History
-
Date of Service: November 01, 2023
states of mild improvement in edema
Objective Data
-
Labs:
Laboratory Results
11/01/23
06:58
WBC 5.5
Hgb 8.7 L
Hct 27.7 L
Plt Count 168
Sodium 135
Potassium 4.5
Chloride 105
Carbon Dioxide 25
BUN 14
Creatinine 0.9
Glucose 104 H
Calcium 8.7
Vital Signs:
Vital Signs
Temp Pulse Resp BP Pulse Ox
98.3 F 70 18 130/71 93
11/01/23 07:53 11/01/23 08:58 11/01/23 07:53 11/01/23 07:53 11/01/23 07:53
I&O
10/31/23 11/01/23 11/02/23
06:59 06:59 06:59
Intake Total 240 / 240
Output Total 1575 / 1575
Balance -1335 / -1335
Physical Exam
-
General: Well Developed and No Apparent Distress
HEENT: Normocephalic, Atraumatic and Moist Mucous Membranes
Respiratory: Clear to Auscultation
Cardiac: Regular Rhythm and S1/S2; Negative Murmur, Rub or Gallop
GI: Soft, Nontender, Normal Bowel Sounds and Distended; Negative Organomegaly
Rectal: Deferred by Provider
Musculoskeletal: No Clubbing, No Cyanosis, Edema, Left Upper Extrem and Edema, Right Lower Extrem
Skin: Negative Rash
Neuro: Awake, Alert, Oriented, AO x 3 and Nonfocal/Grossly Intact
Psych: Calm
Data Reviewed
-
Total Time Spent with Patient (in minutes): 55
[2023-11-01 12:00] VITALS: BP 107/58
[2023-11-01 16:00] VITALS: BP 134/66
[2023-11-01 19:27] VITALS: BP 119/60
[2023-11-01 23:56] VITALS: BP 110/60
[2023-11-02 03:24] VITALS: BP 104/60
[2023-11-02 05:32] LABS: % Basophils 0.8 % (0-2); % Eosinophils 2.7 % (0-6); % Immature Granulocytes 0.2 % (0-0.5); % Lymphocytes 16.3 % (20.5-51.1); % Monocytes 12.8 % (1.7-9.3); % Neutrophils 67.2 % (42.2-75.2); Absolute Eosinophils 0.1 10^3/uL (0-0.7); Absolute Lymphocytes 0.9 10^3/uL (1.2-3.4); Absolute Monocytes 0.7 10^3/uL (0.1-0.6); Absolute Neutrophils 3.5 10^3/uL (1.4-6.5); Hematocrit 26.3 % (39.0-52.0); Hemoglobin 8.7 g/dL (13.0-18.0); Mean Corp Hgb Conc. 33.1 g/dL (33.0-37.0); Mean Corpuscular Hgb 30.3 pg (27.0-31.0); Mean Corpuscular Volume 91.6 fL (80.0-94.0); Mean Platelet Volume 11.6 fL (7.4-10.4); Nucleated Red Blood Cells % 0 % (-); Platelet Count 160 10^3/uL (130-400); Red Blood Cell Count 2.87 10^6/uL (4.70-6.10); Red Cell Dist. Width 14.7 % (11.5-14.5); White Blood Cell Count 5.2 10^3/uL (4.8-10.8)
[2023-11-02 06:00] VITALS: BMI 33.7
[2023-11-02 06:00] LABS: Blood Urea Nitrogen 16 mg/dl (9-20); Calcium 8.6 mg/dl (8.4-10.2); Carbon Dioxide 25 mmol/L (22-30); Chloride 106 mmol/L (98-107); Estimated Creatinine Clearance 93 ml/min; Glucose 105 mg/dl (70-99); Magnesium 2.4 mg/dl (1.6-2.3); Potassium 4.5 mmol/L (3.5-5.1); Sodium 135 mmol/L (135-145); eGFR > 60.00
[2023-11-02 07:55] VITALS: BP 120/62
[2023-11-02] MEDS: THERAGRAN 1 TABLET PO (08:37)
[2023-11-02] MEDS: FEOSOL 325 MG PO (08:37)
[2023-11-02] MEDS: BUMEX 0.5 MG IV ×2 (08:37→17:11)
[2023-11-02] MEDS: PROTONIX 40 MG PO (08:37)
[2023-11-02] MEDS: CLARITIN 10 MG PO (08:37)
[2023-11-02] MEDS: TOPROL XL 25 MG PO (08:37)
[2023-11-02] MEDS: CRESTOR 5 MG PO (08:37)
[2023-11-02] MEDS: CARDIZEM CD 240 MG PO (08:37)
--- NOTE | 2023-11-02 11:45 | W.PN.HOSP.TC ---
Today's Communication/Plan
-
IV bumex
ambulate
rate control
trend cr
FR
Assessment / Plan
Assessment / Plan
Iatrogenic Volume Overload following multiple blood transfusions/colonoscopy prep
-Check FFH-zlrg-qtankcot basilar pneumonia. Procalcitonin negative. Afebrile. No leukocytosis.
-Tolerated Bumex with sulfa allergies. Significant urine output
-Monitor Is&Os and Daily Weights
-ECHO on 10/24 with EF of 55 to 60%. Diastolic function was indeterminate due to A-fib. Normal right ventricular size function. Mild mitral aortic vegetation. Trace tricuspid regurgitation.
Subacute Blood Loss Anemia
-Trend Hgb
-Continue iron supplements. Recent Iron studies with appropriate iron stores.
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
-No bowel movement for the last 24 hours.
-Continue Protonix
Paroxysmal Atrial Fibrillation
-Patient is not on anticoagulation due to recent GI bleed
-Continue Diltiazem and Metoprolol for rate/rhythm control
Essential Hypertension
-Continue Diltiazem and Metoprolol
Hyperlipidemia
-Continue Crestor
DVT proph: SCDs recent GI bleeding
Code Status: Full Code
update daughter over the phone on 10/31 in details
Anticipated Discharge: Within 24 hours
Subjective/Interval History
-
Date of Service: November 02, 2023
states of mild improvement in swelling
no abd pain or cramps
Objective Data
-
Labs:
Laboratory Results
11/02/23
05:09
WBC 5.2
Hgb 8.7 L
Hct 26.3 L
Plt Count 160
Sodium 135
Potassium 4.5
Chloride 106
Carbon Dioxide 25
BUN 16
Creatinine 0.9
Glucose 105 H
Calcium 8.6
Vital Signs:
Vital Signs
Temp Pulse Resp BP Pulse Ox
98.4 F 69 16 120/62 94
11/02/23 07:55 11/02/23 07:55 11/02/23 07:55 11/02/23 07:55 11/02/23 08:10
I&O
11/01/23 11/02/23 11/03/23
06:59 06:59 06:59
Intake Total 240 / 240 940 / 940
Output Total 1575 / 1575 2099 / 2099
Balance -1335 / -1335 -1160 / -1160
Physical Exam
-
General: Well Developed and No Apparent Distress
HEENT: Normocephalic, Atraumatic and Moist Mucous Membranes
Respiratory: Clear to Auscultation (improved from yesterday ); Negative Decreased Breath Sounds
Cardiac: Regular Rhythm and S1/S2; Negative Murmur, Rub or Gallop
GI: Soft, Nontender, Normal Bowel Sounds and Distended; Negative Organomegaly
Rectal: Deferred by Provider
Musculoskeletal: No Clubbing, No Cyanosis, Edema, Left Upper Extrem (improved ) and Edema, Right Lower Extrem (improved )
Skin: Negative Rash
Neuro: Awake, Alert, Oriented, AO x 3 and Nonfocal/Grossly Intact
Psych: Calm
[2023-11-02 11:55] VITALS: BP 118/68
--- NOTE | 2023-11-02 14:43 | CM ---
Met with patient at bedside; initial assessment completed
Pharmacy verified: [facility]
Patient will be staying at daughterNabila's home when discharged; multi-level home; powder room on the 1st floor and in the basement; full bath on 2nd floor has tub w/shower
PLOF: patient reported that he was independent with ADLs and ambulation; until a couple of weeks ago, he had no issues on stairs; Drives
DME: BP cuff
Transport: daughter will provide ride home
SNF/Rehab/Home Care utilization history: none
Plan: discharge to daughter's home; no needs anticipated
[2023-11-02 15:55] VITALS: BP 133/71
[2023-11-02 19:34] VITALS: BP 125/57
[2023-11-02 23:55] VITALS: BP 113/59
[2023-11-03 03:39] VITALS: BP 97/53
[2023-11-03 06:00] VITALS: BMI 33.2
[2023-11-03 07:55] VITALS: BP 134/72
[2023-11-03 08:07] LABS: % Eosinophils 3.3 % (0-6); % Immature Granulocytes 0.4 % (0-0.5); % Lymphocytes 19.7 % (20.5-51.1); % Neutrophils 61.6 % (42.2-75.2); Absolute Basophils 0.1 10^3/uL (0-0.2); Absolute Eosinophils 0.2 10^3/uL (0-0.7); Absolute Monocytes 0.7 10^3/uL (0.1-0.6); Hematocrit 27.9 % (39.0-52.0); Hemoglobin 8.9 g/dL (13.0-18.0); Mean Corp Hgb Conc. 31.9 g/dL (33.0-37.0); Mean Corpuscular Hgb 29.7 pg (27.0-31.0); Mean Platelet Volume 11.7 fL (7.4-10.4); Nucleated Red Blood Cells % 0 % (-); Platelet Count 187 10^3/uL (130-400); Red Cell Dist. Width 14.7 % (11.5-14.5); White Blood Cell Count 4.9 10^3/uL (4.8-10.8)
[2023-11-03 08:31] LABS: Blood Urea Nitrogen 15 mg/dl (9-20); Calcium 8.8 mg/dl (8.4-10.2); Carbon Dioxide 26 mmol/L (22-30); Chloride 106 mmol/L (98-107); Estimated Creatinine Clearance 82 ml/min; Glucose 101 mg/dl (70-99); Magnesium 2.4 mg/dl (1.6-2.3); Sodium 136 mmol/L (135-145); eGFR > 60.00
[2023-11-03] MEDS: CARDIZEM CD 240 MG PO (08:35)
[2023-11-03] MEDS: PROTONIX 40 MG PO (08:36)
[2023-11-03] MEDS: THERAGRAN 1 TABLET PO (08:36)
[2023-11-03] MEDS: BUMEX 0.5 MG IV (08:36)
[2023-11-03] MEDS: CLARITIN 10 MG PO (08:36)
[2023-11-03] MEDS: FEOSOL 325 MG PO (08:36)
[2023-11-03] MEDS: CRESTOR 5 MG PO (08:36)
[2023-11-03] MEDS: TOPROL XL 25 MG PO (08:36)
[2023-11-03 08:40] LABS: Potassium 4.9 mmol/L (3.5-5.1)
--- NOTE | 2023-11-03 11:03 | W.PN.HOSP.TC ---
Today's Communication/Plan
-
Dc bumex
Outpatient cardiology GI follow-up
Assessment / Plan
Assessment / Plan
Iatrogenic Volume Overload following multiple blood transfusions/colonoscopy prep
-Check RCH-lkoc-lvzhbsff basilar pneumonia. Procalcitonin negative. Afebrile. No leukocytosis.
-Tolerated Bumex with sulfa allergies. Significant urine output
-Monitor Is&Os and Daily Weights. Significant weight loss.
-ECHO on 10/24 with EF of 55 to 60%. Diastolic function was indeterminate due to A-fib. Normal right ventricular size function. Mild mitral aortic vegetation. Trace tricuspid regurgitation.
-Can hold and DC further diuretics. Recommend to check daily weights and follow-up outpatient with cardiology. Patient already has an appointment.
Subacute Blood Loss Anemia
-Trend Hgb
-Continue iron supplements. Recent Iron studies with appropriate iron stores. Hemoglobin stable 8.9.
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
-Has outpatient GI follow-up for video capsule endoscopy.
-Continue Protonix
Paroxysmal Atrial Fibrillation
-Patient is not on anticoagulation due to recent GI bleed
-Continue Diltiazem and Metoprolol for rate/rhythm control
Essential Hypertension
-Continue Diltiazem and Metoprolol
Hyperlipidemia
-Continue Crestor
DVT proph: SCDs recent GI bleeding
Code Status: Full Code
update daughter over the phone on 10/31 in details
More than 30 minutes spent in discharge including
Final examination of the patient
Summarizing hospital stay
Instructions for continuing care to all relevant caregivers
Preparation of discharge records, prescriptions, and referral forms
Total time spent (in minutes): 45
Anticipated Discharge: Today
Subjective/Interval History
-
Date of Service: November 03, 2023
Patient is a feeling significantly better
States of significant improvement in overall edema
On room air
Objective Data
-
Labs:
Laboratory Results
11/03/23
06:58
WBC 4.9
Hgb 8.9 L
Hct 27.9 L
Plt Count 187
Sodium 136
Potassium 4.9
Chloride 106
Carbon Dioxide 26
BUN 15
Creatinine 1.0
Glucose 101 H
Calcium 8.8
Vital Signs:
Vital Signs
Temp Pulse Resp BP Pulse Ox
98.1 F 66 16 134/72 98
11/03/23 07:55 11/03/23 08:35 11/03/23 07:55 11/03/23 07:55 11/03/23 08:10
I&O
11/02/23 11/03/23 11/04/23
06:59 06:59 06:59
Intake Total 940 / 940 1620 / 1620
Output Total 2099 / 2099
Balance -1160 / -1160 -305 / -305
Physical Exam
-
General: Well Developed and No Apparent Distress
HEENT: Normocephalic, Atraumatic and Moist Mucous Membranes
Respiratory: Clear to Auscultation (improved from yesterday ); Negative Decreased Breath Sounds
Cardiac: Regular Rhythm and S1/S2; Negative Murmur, Rub or Gallop
GI: Soft, Nontender, Normal Bowel Sounds and Distended; Negative Organomegaly
Rectal: Deferred by Provider
Musculoskeletal: No Clubbing, No Cyanosis and No Edema
Skin: Negative Rash
Neuro: Awake, Alert, Oriented, AO x 3 and Nonfocal/Grossly Intact
Psych: Calm
--- NOTE | 2023-11-03 11:07 | W.DCSUMMARY ---
Discharge Summary
Discharge Data
Date of Admission: 10/31/23
Date of Discharge: 11/03/23
-
Pending Results: No
Hospital Course
73-year-old male past medical history of A-fib, hypertension, hyperlipidemia, iron deficiency anemia, recent GI bleeding where he received multiple units of PRBC and colonoscopy prep. Patient is presenting with diffuse swelling and symptoms
consistent with anasarca. Patient underwent recent echocardiogram on 10/24 with EF of 55 to 60%. Diastolic function was indeterminate due to A-fib. Normal right ventricular size function. Mild mitral aortic vegetation. Trace tricuspid
regurgitation. Patient was started on Bumex. Patient with significant urinary output and decreasing weight. Patient with fluid overload likely secondary to aggressive fluid resuscitation due to GI bleeding recently, PRBC transfusion colonoscopy
prep. Patient was ambulating without any difficulty. Patient remained on room air. Patient with stable hemoglobin. Upon discharge patient was recommended to check daily weights and follow-up and keep his appointment with his primary
depilatory painter. Patient also to undergo and evaluated by gastroenterology for outpatient video capsule endoscopy.
Discharge Plan
-
Patient Disposition: Home (Routine Discharge)
Discharge Diagnosis/Procedures: Iatrogenic Volume Overload following multiple blood transfusions/colonoscopy prep
Condition: Fair
Diet: As tolerated
Activity: With assistance and As tolerated
Driving Restrictions: As prior to admission
Blood Work: Repeat CBC and BMP in 1 week via primary doctor
Activity Restrictions/Additional Instructions:
Check daily weights.
Keep your appointment and follow-up with your depilatory painter and assistant librarian.
Referrals:
Ashley Wilkins PA-C [Family Provider] - in less than 1 week
Prescriptions:
Continued
multivitamin Tablet
1 tab PO DAILY
loratadine [Claritin] 10 mg Tablet
10 mg PO DAILY
rosuvastatin 5 mg tablet
5 mg PO DAILY
diltiazem HCl 240 mg Capsule,Extended Release 24hr
240 mg PO DAILY Qty: 30 0RF
acetaminophen [Tylenol Extra Strength] 500 mg Tablet
1,000 mg PO Q6HPRN PRN (Reason: mod to severe pain) Qty: 10 0RF
pantoprazole 40 mg Tablet,Delayed Release (Dr/Ec)
40 mg PO DAILY Qty: 30 0RF
metoprolol succinate 25 mg Tablet Extended Release 24 Hr
25 mg PO DAILY Qty: 30 0RF
ferrous sulfate 325 mg (65 mg iron) tablet
325 mg PO DAILY Qty: 30 0RF
Discharge Orders:
Discharge Patient (As Directed); Ordered 11/03/23
Ordered By: Nazario Ugarte
Discharge Date and Time
Discharge Date/Time: 11/03/23 12:03
Print Language: ICELANDIC
[2023-11-03 11:33] VITALS: BP 140/71
--- NOTE | 2023-11-03 11:38 | CM ---
Met with patient at bedside
IMM benefit explained; form signed @ 1130
Plan: discharge today; plans to stay at daughter's home for a few days; daughter will provide transport home
== END 2023-11-03 12:03 | disposition home or self-care (01) | DRG 641 ==
LOC: 4 EAST ACU 13:06
PROVIDERS: Physician Assistant; Physician Assistant Medical; ADMITTING PHYSICIAN Hospitalist; EMERGENCY PHYSICIAN Emergency Medicine; FAMILY PHYSICIAN Physician Assistant Medical
DX: E87.70 Fluid overload, unspecified (principal); D62 Acute posthemorrhagic anemia; I48.0 Paroxysmal atrial fibrillation; I10 Essential (primary) hypertension; E78.5 Hyperlipidemia, unspecified
CPT/HCPCS: 71046; 80048; 80053; 81003; 83735; 83880; 84145; 84484; 85014; 85018; 85025; 85027; 86850; 86900; 86901; 93005; 99285

== ENCOUNTER → 2024-06-03 06:24 | Day surgery (SDC) | payer MEDICARE, OTHER, SELFPAY | LOC: GI 06:24 | PROVIDERS: ATTENDING PHYSICIAN Internal Medicine Gastroenterology | DX: Z12.11 Encounter for screening for malignant neoplasm of colon (principal); D12.2 Benign neoplasm of ascending colon; D12.3 Benign neoplasm of transverse colon; K63.5 Polyp of colon; K57.30 Diverticulosis of large intestine without perforation or abscess without bleeding; K64.0 First degree hemorrhoids; K56.2 Volvulus; Z79.01 Long term (current) use of anticoagulants | CPT/HCPCS: 45380; 88305 ==

== ENCOUNTER → 2024-10-08 10:12 | Outpatient (REF) | payer MEDICARE, OTHER, SELFPAY | LOC: HWRCS 10:12 | PROVIDERS: ATTENDING PHYSICIAN Internal Medicine Cardiovascular Disease; FAMILY PHYSICIAN Physician Assistant Medical | DX: I77.810 Thoracic aortic ectasia (principal) | CPT/HCPCS: 93306 ==

== ENCOUNTER → 2025-01-03 08:42 | Outpatient (REF) | payer MEDICARE, OTHER, SELFPAY ==
[2025-01-03 09:45] LABS: % Basophils 0.8 % (0-2); % Eosinophils 1.4 % (0-6); % Immature Granulocytes 0.4 % (0-0.5); % Lymphocytes 18.8 % (20.5-51.1); % Monocytes 13.1 % (1.7-9.3); % Neutrophils 65.5 % (42.2-75.2); Absolute Basophils 0.1 10^3/uL (0-0.2); Absolute Eosinophils 0.2 10^3/uL (0-0.7); Absolute Monocytes 1.4 10^3/uL (0.1-0.6); Absolute Neutrophils 6.9 10^3/uL (1.4-6.5); Hematocrit 53.2 % (39.0-52.0); Hemoglobin 17.7 g/dL (13.0-18.0); Mean Corp Hgb Conc. 33.3 g/dL (33.0-37.0); Mean Corpuscular Hgb 29.1 pg (27.0-31.0); Mean Corpuscular Volume 87.4 fL (80.0-94.0); Mean Platelet Volume 11.4 fL (7.4-10.4); Nucleated Red Blood Cells % 0 % (-); Platelet Count 201 10^3/uL (130-400); Red Blood Cell Count 6.09 10^6/uL (4.70-6.10); Red Cell Dist. Width 13.3 % (11.5-14.5); White Blood Cell Count 10.5 10^3/uL (4.8-10.8)
[2025-01-03 09:54] LABS: INR 1.11; PT 14.6 Sec (11.4-14.6)
[2025-01-03 09:59] LABS: ALT (SGPT) 38 U/L (0-50); AST (SGOT) 25 U/L (17-59); Albumin 4.5 g/dl (3.5-5.0); Alkaline Phosphatase 101 U/L (38-126); Blood Urea Nitrogen 38 mg/dl (9-20); Calcium 10.2 mg/dl (8.4-10.2); Carbon Dioxide 26 mmol/L (22-30); Chloride 109 mmol/L (98-107); Glucose 119 mg/dl (70-99); Magnesium 2.2 mg/dl (1.6-2.3); Potassium 4.8 mmol/L (3.5-5.1); Sodium 143 mmol/L (135-145); Total Bilirubin 0.6 mg/dl (0.2-1.3); eGFR > 60.00
== END ==
LOC: SDSPAT 08:42
PROVIDERS: ATTENDING PHYSICIAN Internal Medicine Cardiovascular Disease; FAMILY PHYSICIAN Physician Assistant Medical; OTHER PHYSICIAN Internal Medicine Cardiovascular Disease
DX: I48.0 Paroxysmal atrial fibrillation (principal)
CPT/HCPCS: 36415; 75572; 80053; 83735; 85025; 85610; 86850; 86900; 86901; 93005; Q9967

== ENCOUNTER 2025-01-03 11:21 | Emergency (ER) | payer MEDICARE, OTHER, SELFPAY ==
[2025-01-03 11:27] VITALS: BP 164/104
--- NOTE | 2025-01-03 13:39 | ED.GENMED ---
History of Present Illness
General
Chief Complaint: Heart Rate Problem
Source: patient and records
Exam Limitations: none
Time Seen by Provider: 01/03/25 13:03
Nursing documentation reviewed up to this point in time: agreed with
History of Present Illness
History of Present Illness:
74-year-old male with a past medical history of hypertension, hyperlipidemia, atrial fibrillation on Eliquis presents to the ER for evaluation of palpitations and tachycardia. Patient sees Dr. Way for cardiology and is scheduled to undergo
cardiac ablation on 01/31/2025. He was getting a preoperative CT scan and was found to be tachycardic and was referred to the ER. Patient says that he noticed he was having some racing heart overnight last night. He says that he took his nighttime
medications but did not take any of his medications this morning because he was told to have nothing by mouth before his CT scan. He complains of palpitations but denies chest pain, dizziness, shortness of breath or any other complaints. Current
medications for A-fib include diltiazem 240 mg nightly, metoprolol succinate 50 mg twice daily, Eliquis 5 mg twice daily. Aside from missing doses this morning he has been compliant.
Review of Systems
Review of Systems
All Other Systems: ROS reviewed and negative except as documented in HPI and ROS
Respiratory: Denies trouble breathing
Cardiac: Reports palpitations; Denies chest pain or syncope
Neurological: Denies dizzy or headache
Phy Exam
Physical Exam
Physical Exam:
General: Awake, alert, oriented x3; no acute distress�sitting up in bed reading newspaper
Head: Normocephalic, atraumatic
Eyes: Conjunctiva normal
Throat: Airway intact, handling secretions
Neck: Trachea midline, no JVD
Lungs: Clear to auscultation bilaterally, no wheezing, rales, rhonchi
Heart: Tachycardia with irregularly irregular rhythm, no murmurs, gallops, or rubs
Abd: Soft, non distended, nontender
Neuro: No gross deficits
Skin: no rash
Extremities: No edema in extremities, equal pulses in all extremities
Scores
Heart Failure Risk
Heart Failure Risk Score: Not Applicable
Heart Score for Chest Pain Patients
STEMI patient?: Not applicable
Withdrawal Assessment of Alcohol
Withdrawal Assessment Completed?: Not applicable
Course
Orders/Labs/Results
Orders:
Orders
01/03/25 11:21
Electrocardiogram (*1) Urgent
Reason for Study: Tachycardia
EKG- Treatment ONCE
01/03/25 13:19
Complete Blood Count/With Diff Urgent
Comprehensive Metabolic Panel Urgent
TSH Reflex To Free T4 Urgent
01/03/25 13:27
Metoprolol Xl [Toprol Xl] 50 mg PO NOW STA
01/03/25 13:34
0.9% Sodium Chloride 500 ml [Nss] 500 ml IV BOLUS
Diltiazem HCl [Cardizem] 10 mg IV NOW STA
01/03/25 14:37
Diltiazem HCl [Cardizem] 20 mg IV NOW STA
Abnormal Lab Results
01/03/25
13:19
Hct 52.3 H %
(39.0-52.0)
MPV 11.1 H fL
(7.4-10.4)
Absolute Monos (auto) 1.1 H 10^3/uL
(0.1-0.6)
Monocytes % 11.4 H %
(1.7-9.3)
BUN 35 H mg/dl
(9-20)
Glucose 120 H mg/dl
(70-99)
01/03/25 13:19
01/03/25 13:19
Vital Signs
Pulse: 85
Initial and Last Documented VS:
Initial Vital Signs
Temp Pulse Resp BP Pulse Ox
36.9 C 132 17 164/104 96
01/03/25 11:27 01/03/25 11:27 01/03/25 11:27 01/03/25 11:27 01/03/25 11:27
Last Documented Vital Signs
Temp Pulse Resp BP Pulse Ox
36.9 C 107 20 123/93 98
01/03/25 11:27 01/03/25 14:12 01/03/25 14:12 01/03/25 14:12 01/03/25 14:12
MDM/Problems Addressed
Differential Diagnosis Includes:
Atrial fibrillation
MDM/Problems Addressed:
74-year-old male presents to the ER with palpitations and tachycardia�presented for an outpatient CT in advance of cardiac ablation in January and was noted to be in A-fib with RVR. Symptomatic since last night. Did not take his medicine this morning
due to CT which was scheduled. Hypertensive and tachycardic here. Physical exam as above. EKG confirms A-fib with RVR. Case discussed with cardiology�he has history of permanent A-fib and is scheduled for ablation, could consider an ER
cardioversion but unlikely to hold. Patient does not want to have a cardioversion and declines procedure electively. Will proceed with rate control. I did call CT and if able to rate control they are able to take him for his scheduled outpatient
CT after ER stay. Will start with his oral metoprolol which was due this morning and a dose of IV diltiazem. Provide some gentle fluids. Reassess after the above.
Labs reviewed and unremarkable. After rate control medications here heart rate in the 80s. Called over CT patient can be discharged and will go for his outpatient CT.
Chronic conditions affecting care:
Atrial fibrillation
Acute Exacerbation and/or Progression of Chronic Illness:
Acutely hypertensive improved with treatment of A-fib
Acute Exacerbation and/or Progression of Chronic Illness: HTN
*Pulse Oximetry
Patient hypoxic: no (96%)
*EKG
Interpreted by ED Provider?: Yes
Heart Rate: 120
Rate: tachycardiac
Rhythm: a-fib
[place]: left axis deviation
Interval: normal interval
QRS Pattern: normal QRS
Ischemia: non-specific ST changes
*Critical Care Note
Total Time (30-74mins, 75-104mins- exclusive of procedures): Not Applicable
Data Reviewed
Review of Other/Old Records Reveals: Labs, Records and Progress Notes (Outpatient progress note reviewed from cardiology)
Source: patient and records
Further Testing Considered But Not Given:
Considered elective ED cardioversion
Patient Management
Discussion with other providers: Crop Supervisor (Discussed with cardiology)
ED Attending Note
-
Portions of this chart may have been created with voice recognition software.� Occasional wrong word or��sound alike� substitutions may have occurred due to the inherent limitations of voice recognition software.
Discharge Plan
Departure
Patient Disposition: Home (Routine Discharge)
Date of Disposition: 01/03/25
Time of Disposition: 15:02
Patient with high blood pressure during this ER visit?: Yes
Discharge Problem:
Atrial fibrillation with RVR
Instructions: Atrial Fibrillation (DC)
Prescriptions:
No Action
multivitamin Tablet
1 tab PO DAILY
loratadine [Claritin] 10 mg Tablet
10 mg PO DAILY PRN (Reason: Allergies)
rosuvastatin 5 mg tablet
5 mg PO QPM
metoprolol succinate 50 mg Tablet Extended Release 24 Hr
50 mg PO BID
pseudoephedrine HCl [Sudafed 12 Hour] 120 mg Tablet Extended Release
120 mg PO Q12H PRN (Reason: congestion)
levothyroxine 25 mcg Tablet
25 mcg PO DAILY
Eliquis 5 mg Tablet
5 mg PO BID
diltiazem HCl 240 mg capsule,extended release 24hr
240 mg PO QPM
acetaminophen [Tylenol Extra Strength] 500 mg tablet
1,000 mg PO Q6HPRN PRN (Reason: pain)
pantoprazole 40 mg tablet,delayed release (DR/EC)
40 mg PO QPM
Activity Restrictions/Additional Instructions:
Thank you for visiting the Emergency Department at [facility].
1. Please schedule a follow up appointment as directed. Call first thing tomorrow morning to make an appointment.
2. If indicated, please take your medications as instructed and indicated on discharge paperwork.
3. If any of your symptoms do not improve, or persist, or become more severe within 6-12 hours, please return to the emergency department for further care.
4. Please return to the emergency department if you develop a headache, neck pain/stiffness, fever greater than 100.4F, chest pain, shortness of breath, persistent nausea, vomiting, slurred speech, difficulty walking, numbness/tingling, weakness,
signs of infection or any other symptoms that are worrisome to you.
Please call [phone] if you have any questions.
Interventions
Interventions:
*Risk Screen - Suicide Last Done: 01/03/25 11:27
*Neglect/Abuse Screening Last Done: 01/03/25 11:27
ED- Cardiac Assessment Last Done: 01/03/25 13:04
ED- Pulmonary Assessment Last Done: 01/03/25 13:04
Discharge Date and Time
Print Language: BERMUDIAN
[2025-01-03 13:45] LABS: % Basophils 0.6 % (0-2); % Eosinophils 1.4 % (0-6); % Immature Granulocytes 0.2 % (0-0.5); % Lymphocytes 21.4 % (20.5-51.1); % Monocytes 11.4 % (1.7-9.3); Absolute Basophils 0.1 10^3/uL (0-0.2); Absolute Eosinophils 0.1 10^3/uL (0-0.7); Absolute Lymphocytes 2.1 10^3/uL (1.2-3.4); Absolute Monocytes 1.1 10^3/uL (0.1-0.6); Absolute Neutrophils 6.5 10^3/uL (1.4-6.5); Hematocrit 52.3 % (39.0-52.0); Hemoglobin 17.5 g/dL (13.0-18.0); Mean Corp Hgb Conc. 33.5 g/dL (33.0-37.0); Mean Corpuscular Hgb 29.2 pg (27.0-31.0); Mean Corpuscular Volume 87.3 fL (80.0-94.0); Mean Platelet Volume 11.1 fL (7.4-10.4); Nucleated Red Blood Cells % 0 % (-); Platelet Count 188 10^3/uL (130-400); Red Blood Cell Count 5.99 10^6/uL (4.70-6.10); Red Cell Dist. Width 13.2 % (11.5-14.5); White Blood Cell Count 9.9 10^3/uL (4.8-10.8)
[2025-01-03] MEDS: TOPROL XL 50 MG PO (13:49)
[2025-01-03] MEDS: CARDIZEM 10 MG IV (13:49)
[2025-01-03] MEDS: NSS 500 IV (13:50)
[2025-01-03 14:08] LABS: ALT (SGPT) 37 U/L (0-50); AST (SGOT) 25 U/L (17-59); Albumin 4.6 g/dl (3.5-5.0); Alkaline Phosphatase 103 U/L (38-126); Blood Urea Nitrogen 35 mg/dl (9-20); Carbon Dioxide 28 mmol/L (22-30); Chloride 107 mmol/L (98-107); Glucose 120 mg/dl (70-99); Potassium 4.9 mmol/L (3.5-5.1); Sodium 142 mmol/L (135-145); Total Bilirubin 0.8 mg/dl (0.2-1.3); Total Protein 7.2 g/dl (6.3-8.2); eGFR > 60.00
[2025-01-03 14:12] VITALS: BP 123/93
[2025-01-03] MEDS: CARDIZEM 20 MG IV (14:47)
== END 2025-01-03 15:10 | disposition home or self-care (01) ==
LOC: EMR 11:21
PROVIDERS: EMERGENCY PHYSICIAN Emergency Medicine; FAMILY PHYSICIAN Physician Assistant Medical; OTHER PHYSICIAN Internal Medicine Cardiovascular Disease
DX: I48.21 Permanent atrial fibrillation (principal); I10 Essential (primary) hypertension; E78.5 Hyperlipidemia, unspecified; Z79.01 Long term (current) use of anticoagulants; Z79.899 Other long term (current) drug therapy
CPT/HCPCS: 99285; 96374; 96375; 96361; 36415; 75572; 80053; 83735; 84443; 85025; 85610; 86850; 86900; 86901; 93005; Q9967

== ENCOUNTER 2025-01-31 05:53 | Day surgery (SDC) | payer MEDICARE, OTHER, SELFPAY ==
[2025-01-03 09:13] VITALS: BMI 38.7
--- NOTE | 2025-01-07 14:51 | W.PN.UPDATE ---
Update Note
Progress Note Update
Chest CT incidental finding of pulmonary nodule. Dr. Ashley Wilkins and patient made aware.
[2025-01-31] VITALS (13 sets, daily range): BP systolic 84–128; BP diastolic 65–108; BMI 38.7
[2025-01-31] MEDS: NSS 500 IV (07:19)
--- NOTE | 2025-01-31 09:34 | ITS.CL.ABL ---
Mobile Manager - Ablation
Ablation
Procedure Report:
ELECTROPHYSIOLOGIC STUDY AND POSSIBLE ABLATION
DATE: January 31, 2025
Primary Care Provider: Dr. Ashley Mitchell
Primary Field Service Technician: Dr. Reyes Thacker
INDICATION:
Symptomatic Atrial Fibrillation.
Persistent
HISTORY: See H and P.
Symptomatic AF, poorly controlled with attempted medical therapy
HAS-BLED: 2
Age
GI bleed
CHADSVASc: 2
HTN
Age
PRESENTING RHYTHM: AF
HISTORY: See H and P.
Symptomatic AF, poorly controlled with attempted medical therapy.
ANTICOAGULATION: abixaban 5 mg twice daily
'TIME-OUT': called and confirmed.
SEDATION/ANESTHESIA: provided via the anesthesia department using general anesthesia.
PROCEDURE:
Ultrasound Guidance with real-time visualization of needle insertion and vessel patency performed by pr for femoral venous Vascular Access.
Under real-time US guidance, the needle was advanced with negative pressure into the vein. The needle was seen entering the vessel lumen with a good return of dark red flow, the syringe was removed, non-pulsatile, dark red blood low was noted and
the wire was passed without difficulty, then the needle was removed. US confirmed the wire was in the vein, not going into an artery,
Images were taken and saved for the patient's permanent record. Imaging findings typical femoral venous anatomy. Direct visualization of needle puncture into the femoral vein was observed and recorded.
A decapolar CS catheter was placed within the CS for mapping and pacing.
The intracardiac ultrasound catheter was positioned in the RA for continuous intracardiac ultrasound imaging.
Heparin bolus and infusion to target ACT at 300 -350 seconds was administered. Transseptal puncture was performed. This entailed advancing a sheath with dilator into the superior vena cava and withdrawing both (monitoring intracardiac ultrasound,
fluoroscopy and tip pressure) with the tip oriented toward the atrial septum. The fossa ovalis was engaged (indicated by sudden displacement of the sheath tip as well as tenting of the fossa seen on intracardiac ultrasound).
Transseptal puncture was performed. Left atrial catheter position was confirmed by echocardiographic imaging, pressure monitoring (LA mean pressure 10 mm Hg) and fluoroscopy. The sheath was advanced over the dilator and positioned in the left
atrium.
The [employer] multipolar mapping/ablation Sphere-9 catheter was positioned through the transseptal sheath for high density mapping.
Geometry and voltage mapping was performed using the [employer] Formula E mapping system for three-dimensional electroanatomical mapping.
Catheter positioning was guided and confirmed using both I.C.E. and fluoroscopy.
Cardioversion resulted in sinus rhythm.
Ablation strategy included PVI as well as mapping for extra PV contributors to atrial fibrillation which would also be targeted if present.
High density electroanatomical three-dimensional mapping demonstrated LSPV, LIPV, RSPV, RIPV.
After accomplishing pulmonary venous isolation, mapping identified additional areas likely to be extra PV contributors to atrial fibrillation. These areas demonstrated patchy low voltage as well as complex fractionated electrograms. These areas can
be sites for the formation of rotors which can drive and maintain atrial fibrillation. These areas are known to be significant contributors to initiation and perpetuation of atrial fibrillation.
Additional energy applications/additional ablation sets targeted extra PV contributors to atrial fibrillation.
Targets for additional PFA ablation included:
LA posterior wall targeted with pulsed electric field energy isolating the posterior wall of the left atrium
After ablation of the posterior wall, target remained [ ].
LA inferior floor
These areas were ablated using pulsed electric field energy eliminating the extra PV contributors to atrial fibrillation.
Post ablation mapping finds entrance and exit block at each of the pulmonary veins (LSPV, LIPV, RSPV, RIPV), the LA posterior wall and at the additional lines at Inferior/floor of the LA rendering the sites no longer able to contribute to atrial
fibrillation.
Programmed electrostimulation including burst atrial pacing as well the delivery of decremental extrastimuli down to atrial effective refractory period and no sustained arrhythmias could be induced.
Post ablation mapping suggested possible visual And lesion placement about the superior posterior quadrant of the right superior pulmonary vein. Although the vein is electrically isolated, additional lesions were placed at the area of visual gap,
closing the gap.
I.C.E. :
Pre-Ablation Post-Ablation
LVEF: 55% 55%
WMA: None none
Pericardial effusion: trace post trace post
COMPLICATIONS:
None
SUMMARY:
- Mapping and ablation to isolate the PVs resulting in electrical isolation of the pulmonary veins
- Additional AF ablation sets X 2 after PVI (LA posterior wall, Inf/floor of the LA posterior wall) resulting in elimination of the targeted extra PV contributors to atrial fibrillation (Post wall, Inf LA floor)
- 3-D Electroanatomical Mapping
- Intracardiac Ultrasound
- Ultrasound guidance for vascular access
Post ablation, I discussed today's findings and results with the patient's son, Castro
RECOMMENDATIONS:
- Observe in monitored bed.
- Maintain oral anticoagulation.
- Office visit with Dr Thacker 03/28/25
Copy to:
Dr. Ashely Mitchell
Primary Field Service Technician: Dr. Reyes Thacker
[2025-01-31] MEDS: TYLENOL 650 MG PO (09:59)
--- NOTE | 2025-01-31 12:25 | W.PN.UPDATE ---
Update Note
Progress Note Update
Pt seen post PFA. Right groin with vascade closure, no ht/bleeding, oob ambulating, urinating without difficulty. Post EKG SB 50s, occasional PAC, no acute changes. Resume eliquis tonight at usual time. Followup with Dr. Gama as scheduled. Home
today if groin site/tele remain stable.
[2025-02-03 13:18] LABS: ACT-LR - POC > 397 Seconds (116-155)
[2025-02-03 13:18] LABS: ACT-LR - POC > 397 Seconds (116-155)
== END 2025-01-31 12:30 | disposition home or self-care (01) ==
LOC: CATH 05:53
PROVIDERS: ATTENDING PHYSICIAN Internal Medicine Cardiovascular Disease; FAMILY PHYSICIAN Physician Assistant Medical; REFERRING PHYSICIAN Internal Medicine Cardiovascular Disease
DX: I48.0 Paroxysmal atrial fibrillation (principal); I10 Essential (primary) hypertension; E78.5 Hyperlipidemia, unspecified; E66.9 Obesity, unspecified; Z68.38 Body mass index [BMI] 38.0-38.9, adult; D50.9 Iron deficiency anemia, unspecified; Z87.891 Personal history of nicotine dependence; R73.03 Prediabetes; E03.9 Hypothyroidism, unspecified; K21.9 Gastro-esophageal reflux disease without esophagitis; R91.1 Solitary pulmonary nodule; Z79.890 Hormone replacement therapy; Z79.01 Long term (current) use of anticoagulants; Z79.899 Other long term (current) drug therapy; Z88.0 Allergy status to penicillin; Z88.2 Allergy status to sulfonamides; I49.1 Atrial premature depolarization; Z98.890 Other specified postprocedural states
CPT/HCPCS: C1894; C1733; C1766; C1730; C1892; 93005; 93656; 93657; C1760; Q9967

== ENCOUNTER 2025-04-21 06:44 | Day surgery (SDC) | payer MEDICARE, OTHER, SELFPAY ==
[2025-04-21 07:25] VITALS: BMI 36.5
--- NOTE | 2025-04-23 16:16 | ITS.CL.CARDI ---
Furniture Designer - Cardioversion
Cardioversion
Procedure Report:
Date of Procedure: 04/21/25
Procedure: Cardioversion
Indication: Symptomatic atrial fibrillation
Performing Physician: Berenice Chavez DO [facility]
Technique: The patient was brought to the holding area. Signed informed consent was obtained. A time out was called and performed. The patient was anesthetized by the anesthesia service. Anticoagulation status was reviewed and appropriate. R2 pads
were placed anteriorly and posteriorly. A 200 J synchronized biphasic shock restored normal sinus rhythm without significant bradycardia. There were no complications.
Conclusion: Uncomplicated cardioversion from atrial fibrillation to sinus rhythm.
Recommendation: Routine post cardioversion care. Continue shelter anticoagulation.
== END 2025-04-21 09:18 | disposition home or self-care (01) ==
LOC: CATH 06:44
PROVIDERS: ATTENDING PHYSICIAN Internal Medicine Cardiovascular Disease; FAMILY PHYSICIAN Physician Assistant Medical; OTHER PHYSICIAN Internal Medicine Cardiovascular Disease
DX: I48.0 Paroxysmal atrial fibrillation (principal); I48.3 Typical atrial flutter; I77.810 Thoracic aortic ectasia; I10 Essential (primary) hypertension
CPT/HCPCS: 92960; 93005

== ENCOUNTER → 2025-05-30 09:43 | Outpatient (REF) | payer MEDICARE, OTHER, SELFPAY | LOC: SDSPAT 09:43 | PROVIDERS: ATTENDING PHYSICIAN Internal Medicine Cardiovascular Disease; FAMILY PHYSICIAN Physician Assistant Medical; OTHER PHYSICIAN Internal Medicine Cardiovascular Disease; OTHER PHYSICIAN Physician Assistant Medical | DX: I48.0 Paroxysmal atrial fibrillation (principal) | CPT/HCPCS: 36415; 83880; 93005 ==

== ENCOUNTER 2025-06-06 07:01 | Day surgery (SDC) | payer MEDICARE, OTHER, SELFPAY ==
[2025-05-30 09:50] VITALS: BMI 37.3
--- NOTE | 2025-05-30 12:35 | SLEEP.APNEA ---
Sleep Apnea Order
-
Patient screened as High Risk for Sleep Apnea on [employer] Questionnaire. Patient referred to [facility] for Pre-Study.

Name: KYLIE MONTENEGRO
: 1950
Home Phone: Use [email or web address] instead
Cell Phone: [f_Reg Other Phone]
Work Phone:
Address: [address] [place] [address]
City: [place]
State: [place]
Zip: [f_[facility] Zip]
Family Physician: NO INTERVIEW UNKNOWN
Height 5 ft 7 in
Actual Weight 108 kg
Body Mass Index (BMI) 37.3
Ordering Provider: Hetal Roca
--- NOTE | 2025-06-06 10:08 | ITS.CL.CARDI ---
Physical Damage Appraiser - Cardioversion
Cardioversion
Procedure Report:
Date of Procedure: 06/06/25
Procedure: Cardioversion
Indication: Symptomatic atrial flutter
Performing Physician: Eugene Bradley MD
Technique: The patient was brought to the holding area. Signed informed consent was obtained. A time out was called and performed. The patient was anesthetized by the anesthesia service. Anticoagulation status was reviewed and appropriate. R2 pads
were placed anteriorly and posteriorly. A 200 J synchronized biphasic shock restored normal sinus rhythm without significant bradycardia. There were no complications.
Conclusion: Uncomplicated cardioversion from atrial flutte to sinus rhythm.
Recommendation: Routine post cardioversion care. Continue watermaster anticoagulation.
== END 2025-06-06 10:34 | disposition home or self-care (01) ==
LOC: CATH 07:01
PROVIDERS: ATTENDING PHYSICIAN Internal Medicine Cardiovascular Disease; FAMILY PHYSICIAN Physician Assistant Medical; OTHER PHYSICIAN Internal Medicine Cardiovascular Disease
DX: I48.92 Unspecified atrial flutter (principal); I48.0 Paroxysmal atrial fibrillation; D50.9 Iron deficiency anemia, unspecified; E03.9 Hypothyroidism, unspecified; E11.51 Type 2 diabetes mellitus with diabetic peripheral angiopathy without gangrene; E66.9 Obesity, unspecified; E78.5 Hyperlipidemia, unspecified; I08.3 Combined rheumatic disorders of mitral, aortic and tricuspid valves; I10 Essential (primary) hypertension; I49.3 Ventricular premature depolarization; I70.0 Atherosclerosis of aorta; K22.70 Barrett's esophagus without dysplasia; Z87.891 Personal history of nicotine dependence; Z79.890 Hormone replacement therapy; Z79.899 Other long term (current) drug therapy; Z87.19 Personal history of other diseases of the digestive system; Z79.01 Long term (current) use of anticoagulants; Z88.0 Allergy status to penicillin; Z88.2 Allergy status to sulfonamides
CPT/HCPCS: 93312; 93320; 93325; 92960; 93005